=== PATIENT | male | born 1980 | race Caucasian/White ===

== ENCOUNTER 2019-10-21 18:35 | Inpatient (IN) ==
--- NOTE | 2019-10-21 19:25 | Emergency Department Note ---
General Adult HPI - General Chief complaint: Abdominal Pain Stated complaint: abdominal pain Time Seen by Provider: 10/21/19 19:08 Source: patient Mode of arrival: ambulatory Limitations: no limitations - History of Present Illness HPI Narrative: Reason for visit: Patient arrives complaining of lower back and left flank pain. States pain began yesterday. Reports some difficulties with urine, patient is not forthcoming with specifics. Patient was seen recently at this emergency department. He was seen by Without a specific diagnosis. Significant finding during that visit was elevated liver enzymes. During this visit my assessment patient's primary complaint was lower back pain is more significant to his left flank. He reports difficulty with urination. He is not specific on his symptoms. She is not forthcoming with information. A chest pain or palpations current shortness of breath. Reports fevers at home he is not specific on the temperature. He is afebrile during this visit according to triage note. Patient does add a multitude of symptoms that he has had such as shortness of breath cough and malaise. Reports that he is weaker than usual and has been lethargic. He does report a headache and generalized body aches. - Related Data Home Medications Medication Instructions Recorded Confirmed Albuterol Sulfate [Ventolin] 1 puff INH Q4HP PRN 03/12/16 10/22/19 Allergies Allergy/AdvReac Type Severity Reaction Status Date / Time codeine Allergy Severe Hives Verified 10/21/19 19:07 Tetanus Vaccines and Toxoid Allergy Unknown Unknown Verified 10/21/19 19:07 [Tetanus Vaccines & Toxoid] Review of Systems Constitutional: Reports: fever, chills. Denies: weakness ENT ED: Denies: throat pain Cardiovascular: Denies: chest pain, palpitations, dyspnea on exertion Respiratory: Reports: shortness of breath, cough, wheezes, phlegm Gastrointestinal: Reports: abdominal pain (Reorder reports abdominal pain as suprapubic his bladder area.). Denies: nausea, vomiting, diarrhea Genitourinary: Reports: dysuria Musculoskeletal: Reports: back pain Integumentary: Denies: rash, lesions Neurological: Reports: headache Endocrine: Reports: fatigue Hematological/Lymphatic: Denies: easy bleeding, easy bruising Past Medical History - Past Medical History Medical history: Reports: COPD, other (recurrent skin infections) Psychiatric history: Reports: anxiety Surgical history ED: Reports: orthopedic, other - Social History smoking status: Current every day smoker Alcohol use: Reports: None Drug use: Reports: methamphetamine. Denies: IVDU Physical Exam Limitations: no limitations General appearance: alert, anxious Head: atraumatic, normocephalic, normal inspection Eye: Present: normal appearance, PERRL. Absent: scleral icterus ENT: Present: normal exam, normal oropharynx, mucous membranes moist Neck: Present: normal inspection, full ROM. Absent: tenderness, lymphadenopathy Chest: Present: normal inspection, symmetric chest wall rise. Absent: tenderness Respiratory: Present: wheezes (I auscultated wheezes bilaterally.). Absent: normal lung sounds bilaterally, respiratory distress Cardiovascular: Present: regular rate, normal rhythm Abdominal: Present: tenderness (Reports tenderness at bladder area.), normal bowel sounds. Absent: guarding, Robb's sign, Rovsing's sign, tenderness at [place]Bur[place]'s Point Abdominal tenderness: Present: suprapubic. Absent: RUQ, RLQ, LUQ, LLQ Extremities: Present: normal inspection, full ROM Back: Present: normal inspection, CVA tenderness (L). Absent: CVA tenderness (R) Neurological: Present: alert, oriented X3, CN II-XII intact Psychiatric: Present: normal affect (Affect is reasonably normal appears somewhat subdued from place.), normal mood Skin: Present: warm, dry, intact, normal color. Absent: diaphoretic Course Course Narrative: During my assessment patient felt like he was becoming chilled and felt like his fever is coming back. I took his temperature and it was 100.4. Patient has multiple symptoms including stated shortness of breath and auscultated wheezes. Ports body aches. Due to his recent visit and lab results and current presentation I will draw blood check urine and get a chest x-ray. We will also obtain a flu swab. Due to patient's elevated liver enzymes I will give ibuprofen for fever symptoms instead of Tylenol. Patient refused x-ray. He states this is because he had an x-ray 2 days ago. I I discussed this with the patient. He told me his breathing has not changed since his last visit on the . Informed him that we would discuss this again after his labs come back. It with him this time he focus less on the multitude of symptoms he gave me on my second assessment. Focused more on his bladder discomfort and urinary problems. CMP results show sodium of 120 significant elevation of her enzymes. There is a call out to [facility] she requested to talk to the on-call GI specialist due to the elevation of liver enzymes. Plan is to admit this patient due to his low sodium. Talked to Dr. Romeo the GI specialist from [facility]. I discussed the elevated liver enzymes and low sodium. He recommended that I order a hepatitis panel and coagulation studies. We discussed the patients low-sodium. I discussed conversation I had with Dr. Batista from [facility] with Dr. Rojas. He ordered clotting studies. He told me that if the INR was within an acceptable level he would consider admitting this patient here at [facility]. I discussed this case with Dr. Pino, will be assuming care of this patient. Vital Signs Temperature 98.0 F 10/21/19 19:06 Pulse Rate 104 H 10/21/19 19:06 Respiratory Rate 16 10/21/19 19:06 Blood Pressure 122/59 10/21/19 19:06 Pulse Oximetry (%) 100 10/21/19 19:06 Temperature 100.9 F H 10/22/19 22:01 Pulse Rate 95 H 10/22/19 22:33 Respiratory Rate 18 10/22/19 17:47 Blood Pressure 117/70 10/22/19 22:30 Pulse Oximetry (%) 100 10/22/19 22:33 Medical Decision Making - Lab Data Result diagrams: 10/22/19 04:30 10/22/19 19:35 Lab Results 10/21/19 10/21/19 10/21/19 Range/Units 19:47 19:47 19:47 WBC 7.3 (4.5-11.0) K/mcL RBC 5.94 H (4.50-5.90) M/mcL Hgb 17.5 H (13.5-16.5) g/dL Hct 50.6 (41.0-55.0) % MCV 85.2 (80.0-100.0) fL MCH 29.5 (26.0-34.0) pg MCHC 34.6 (31.0-36.0) g/dL RDW 12.5 (11.5-14.5) % Plt Count 148 (140-440) K/mcL MPV 9.2 (7.4-10.4) fL Gran % 84.7 H (38.0-78.0) % Lymph % (Auto) 7.8 L (15.5-49.0) % [place] % (Auto) 4.6 (1.0-12.0) % Eos % (Auto) 1.2 (0.0-7.0) % Baso % (Auto) 1.7 (0.0-2.0) % Gran # 6.2 (1.8-8.0) K/mcL Lymph # (Auto) 0.6 L (1.5-4.8) K/mcL [place] # (Auto) 0.3 (0.1-0.9) K/mcL Eos # (Auto) 0.1 (0.0-0.7) K/mcL Baso # (Auto) 0.1 (0.0-0.3) K/mcL Total Counted Seg Neutrophils % (38-78) % Band Neutrophils % (0-10) % Lymphocytes % (15-49) % Monocytes % (Manual) (1-12) % Eosinophils % (Manual) (0-7) % Metamyelocytes % (0-0) % Differential Comment Platelet Estimate (NORMAL) RBC Morphology (NORMAL) PT (11.9-14.5) sec INR (0.9-1.1) VBG Lactic Acid (0.5-2.0) mmol/L Sodium 120 L (133-145) mmol/L Potassium 3.9 (3.3-5.1) mmol/L Chloride 82 L (96-108) mmol/L Carbon Dioxide 22 (22-30) mmol/L Anion Gap 16.0 (8-16) BUN 13 (6-20) mg/dl Creatinine 1.1 (0.7-1.2) mg/dl GFR Calculation 84 Glucose 97 (70-105) mg/dL Osmolality (280-300) mOSM/kg Uric Acid (2.5-8.0) mg/dL Calcium 8.1 L (8.6-10.4) mg/dl Total Bilirubin 1.6 H (0.0-1.0) mg/dL AST 3822 H (0-37) U/l ALT 2550 H (0-40) U/l Alkaline Phosphatase 190 H (39-117) U/L Ammonia (16-60) umol/L Lactate Dehydrogenase (94-250) U/L Total Creatine Kinase (24-195) IU/L Total Protein 6.8 (5.9-8.4) gm/dL Albumin 3.7 (3.2-5.2) gm/dL Globulin 3.1 (2.2-3.7) gm/dL Albumin/Globulin Ratio 1.2 (1.0-2.3) Prealbumin (20-40) mg/dl Lipase 15 (7-60) U/L Procalcitonin (<0.10) ng/mL TSH (0.27-5.01) uIU/ml Urine Color Urine Appearance Urine pH (5.0-9.0) Ur Specific [place] (1.000-1.035) Urine Protein (NEG) mg/dL Urine Glucose (UA) (NEG) mg/dL Urine Ketones (NEG) mg/dL Urine Occult Blood (<0.03) mg/dL Urine Nitrate (NEG) Urine Bilirubin (NEG) mg/dL Urine Urobilinogen (NEG) mg/dL Ur Leukocyte Esterase (NEG) /uL Urine RBC (0-1) /hpf Urine WBC (0-4) /hpf Ur Squamous Epith Cells (0-4) /hpf Amorphous Crystals (0) /hpf Urine Bacteria (0) /hpf Hyaline Casts (0-2) /lpf Urine Mucus (0) /hpf Ur Culture Indicated? Urine Osmolality (80-1000) mOsm/kg Ur Random Sodium mmol/L Salicylates mg/dL Urine Opiates Screen (NONDETECTED) Ur Opiates Confirm Ur Oxycodone Screen (NONDETECTED) Urine Methadone Screen (NONDETECTED) Ur Methadone Confirm Acetaminophen ug/mL Ur Barbiturates Screen (NONDETECTED) Ur Barbiturate Confirm Ur Phencyclidine Scrn (NONDETECTED) Urine PCP Confirm Ur Amphetamines Screen (NONDETECTED) U Amphetamines Confirm U Benzodiazepines Scrn (NONDETECTED) U Benzodiazepine Confm Urine Cocaine Screen (NONDETECTED) Urine Cocaine Confirm U Cannabinoids Confirm U Marijuana (THC) Screen (NONDETECTED) Ethyl Alcohol (<0.010) gm/dl Hepatitis A IgM Ab (NEGATIVE) Hep Bs Antigen (NEGATIVE) Hep B Core IgM Ab (NEGATIVE) Hepatitis C Antibody (NEGATIVE) HCV RNA Quant (PCR) HCV RNA PCR log IUs/ml 10/21/19 10/21/19 10/21/19 Range/Units 19:47 19:47 19:47 WBC (4.5-11.0) K/mcL RBC (4.50-5.90) M/mcL Hgb (13.5-16.5) g/dL Hct (41.0-55.0) % MCV (80.0-100.0) fL MCH (26.0-34.0) pg MCHC (31.0-36.0) g/dL RDW (11.5-14.5) % Plt Count (140-440) K/mcL MPV (7.4-10.4) fL Gran % (38.0-78.0) % Lymph % (Auto) (15.5-49.0) % [place] % (Auto) (1.0-12.0) % Eos % (Auto) (0.0-7.0) % Baso % (Auto) (0.0-2.0) % Gran # (1.8-8.0) K/mcL Lymph # (Auto) (1.5-4.8) K/mcL [place] # (Auto) (0.1-0.9) K/mcL Eos # (Auto) (0.0-0.7) K/mcL Baso # (Auto) (0.0-0.3) K/mcL Total Counted Seg Neutrophils % (38-78) % Band Neutrophils % (0-10) % Lymphocytes % (15-49) % Monocytes % (Manual) (1-12) % Eosinophils % (Manual) (0-7) % Metamyelocytes % (0-0) % Differential Comment Platelet Estimate (NORMAL) RBC Morphology (NORMAL) PT (11.9-14.5) sec INR (0.9-1.1) VBG Lactic Acid (0.5-2.0) mmol/L Sodium (133-145) mmol/L Potassium (3.3-5.1) mmol/L Chloride (96-108) mmol/L Carbon Dioxide (22-30) mmol/L Anion Gap (8-16) BUN (6-20) mg/dl Creatinine (0.7-1.2) mg/dl GFR Calculation Glucose (70-105) mg/dL Osmolality (280-300) mOSM/kg Uric Acid (2.5-8.0) mg/dL Calcium (8.6-10.4) mg/dl Total Bilirubin (0.0-1.0) mg/dL AST (0-37) U/l ALT (0-40) U/l Alkaline Phosphatase (39-117) U/L Ammonia (16-60) umol/L Lactate Dehydrogenase (94-250) U/L Total Creatine Kinase (24-195) IU/L Total Protein (5.9-8.4) gm/dL Albumin (3.2-5.2) gm/dL Globulin (2.2-3.7) gm/dL Albumin/Globulin Ratio (1.0-2.3) Prealbumin 14.6 L (20-40) mg/dl Lipase (7-60) U/L Procalcitonin (<0.10) ng/mL TSH (0.27-5.01) uIU/ml Urine Color Urine Appearance Urine pH (5.0-9.0) Ur Specific [place] (1.000-1.035) Urine Protein (NEG) mg/dL Urine Glucose (UA) (NEG) mg/dL Urine Ketones (NEG) mg/dL Urine Occult Blood (<0.03) mg/dL Urine Nitrate (NEG) Urine Bilirubin (NEG) mg/dL Urine Urobilinogen (NEG) mg/dL Ur Leukocyte Esterase (NEG) /uL Urine RBC (0-1) /hpf Urine WBC (0-4) /hpf Ur Squamous Epith Cells (0-4) /hpf Amorphous Crystals (0) /hpf Urine Bacteria (0) /hpf Hyaline Casts (0-2) /lpf Urine Mucus (0) /hpf Ur Culture Indicated? Urine Osmolality (80-1000) mOsm/kg Ur Random Sodium mmol/L Salicylates mg/dL Urine Opiates Screen (NONDETECTED) Ur Opiates Confirm Ur Oxycodone Screen (NONDETECTED) Urine Methadone Screen (NONDETECTED) Ur Methadone Confirm Acetaminophen < 5.0 ug/mL Ur Barbiturates Screen (NONDETECTED) Ur Barbiturate Confirm Ur Phencyclidine Scrn (NONDETECTED) Urine PCP Confirm Ur Amphetamines Screen (NONDETECTED) U Amphetamines Confirm U Benzodiazepines Scrn (NONDETECTED) U Benzodiazepine Confm Urine Cocaine Screen (NONDETECTED) Urine Cocaine Confirm U Cannabinoids Confirm U Marijuana (THC) Screen (NONDETECTED) Ethyl Alcohol < 0.010 (<0.010) gm/dl Hepatitis A IgM Ab (NEGATIVE) Hep Bs Antigen (NEGATIVE) Hep B Core IgM Ab (NEGATIVE) Hepatitis C Antibody (NEGATIVE) HCV RNA Quant (PCR) HCV RNA PCR log IUs/ml 10/21/19 10/21/19 10/21/19 Range/Units 19:47 19:47 20:19 WBC (4.5-11.0) K/mcL RBC (4.50-5.90) M/mcL Hgb (13.5-16.5) g/dL Hct (41.0-55.0) % MCV (80.0-100.0) fL MCH (26.0-34.0) pg MCHC (31.0-36.0) g/dL RDW (11.5-14.5) % Plt Count (140-440) K/mcL MPV (7.4-10.4) fL Gran % (38.0-78.0) % Lymph % (Auto) (15.5-49.0) % [place] % (Auto) (1.0-12.0) % Eos % (Auto) (0.0-7.0) % Baso % (Auto) (0.0-2.0) % Gran # (1.8-8.0) K/mcL Lymph # (Auto) (1.5-4.8) K/mcL [place] # (Auto) (0.1-0.9) K/mcL Eos # (Auto) (0.0-0.7) K/mcL Baso # (Auto) (0.0-0.3) K/mcL Total Counted 100 Seg Neutrophils % 47 (38-78) % Band Neutrophils % 33 H (0-10) % Lymphocytes % 13 L (15-49) % Monocytes % (Manual) 4 (1-12) % Eosinophils % (Manual) 1 (0-7) % Metamyelocytes % 2 H (0-0) % Differential Comment Platelet Estimate Normal (NORMAL) RBC Morphology Normal (NORMAL) PT 15.8 H (11.9-14.5) sec INR 1.3 H (0.9-1.1) VBG Lactic Acid (0.5-2.0) mmol/L Sodium (133-145) mmol/L Potassium (3.3-5.1) mmol/L Chloride (96-108) mmol/L Carbon Dioxide (22-30) mmol/L Anion Gap (8-16) BUN (6-20) mg/dl Creatinine (0.7-1.2) mg/dl GFR Calculation Glucose (70-105) mg/dL Osmolality (280-300) mOSM/kg Uric Acid (2.5-8.0) mg/dL Calcium (8.6-10.4) mg/dl Total Bilirubin (0.0-1.0) mg/dL AST (0-37) U/l ALT (0-40) U/l Alkaline Phosphatase (39-117) U/L Ammonia (16-60) umol/L Lactate Dehydrogenase (94-250) U/L Total Creatine Kinase (24-195) IU/L Total Protein (5.9-8.4) gm/dL Albumin (3.2-5.2) gm/dL Globulin (2.2-3.7) gm/dL Albumin/Globulin Ratio (1.0-2.3) Prealbumin (20-40) mg/dl Lipase (7-60) U/L Procalcitonin (<0.10) ng/mL TSH (0.27-5.01) uIU/ml Urine Color Yellow Urine Appearance Hazy Urine pH 6.0 (5.0-9.0) Ur Specific [place] 1.017 (1.000-1.035) Urine Protein 100 A (NEG) mg/dL Urine Glucose (UA) Negative (NEG) mg/dL Urine Ketones 5/tr A (NEG) mg/dL Urine Occult Blood 0.2 A (<0.03) mg/dL Urine Nitrate Neg (NEG) Urine Bilirubin Neg (NEG) mg/dL Urine Urobilinogen 2.0 A (NEG) mg/dL Ur Leukocyte Esterase Neg (NEG) /uL Urine RBC 1 (0-1) /hpf Urine WBC 2 (0-4) /hpf Ur Squamous Epith Cells 0 (0-4) /hpf Amorphous Crystals Few A (0) /hpf Urine Bacteria 0 (0) /hpf Hyaline Casts 5 H (0-2) /lpf Urine Mucus Few (0) /hpf Ur Culture Indicated? No Urine Osmolality (80-1000) mOsm/kg Ur Random Sodium mmol/L Salicylates mg/dL Urine Opiates Screen (NONDETECTED) Ur Opiates Confirm Ur Oxycodone Screen (NONDETECTED) Urine Methadone Screen (NONDETECTED) Ur Methadone Confirm Acetaminophen ug/mL Ur Barbiturates Screen (NONDETECTED) Ur Barbiturate Confirm Ur Phencyclidine Scrn (NONDETECTED) Urine PCP Confirm Ur Amphetamines Screen (NONDETECTED) U Amphetamines Confirm U Benzodiazepines Scrn (NONDETECTED) U Benzodiazepine Confm Urine Cocaine Screen (NONDETECTED) Urine Cocaine Confirm U Cannabinoids Confirm U Marijuana (THC) Screen (NONDETECTED) Ethyl Alcohol (<0.010) gm/dl Hepatitis A IgM Ab (NEGATIVE) Hep Bs Antigen (NEGATIVE) Hep B Core IgM Ab (NEGATIVE) Hepatitis C Antibody (NEGATIVE) HCV RNA Quant (PCR) HCV RNA PCR log IUs/ml 10/21/19 10/21/19 10/21/19 Range/Units 20:19 20:21 22:40 WBC (4.5-11.0) K/mcL RBC (4.50-5.90) M/mcL Hgb (13.5-16.5) g/dL Hct (41.0-55.0) % MCV (80.0-100.0) fL MCH (26.0-34.0) pg MCHC (31.0-36.0) g/dL RDW (11.5-14.5) % Plt Count (140-440) K/mcL MPV (7.4-10.4) fL Gran % (38.0-78.0) % Lymph % (Auto) (15.5-49.0) % [place] % (Auto) (1.0-12.0) % Eos % (Auto) (0.0-7.0) % Baso % (Auto) (0.0-2.0) % Gran # (1.8-8.0) K/mcL Lymph # (Auto) (1.5-4.8) K/mcL [place] # (Auto) (0.1-0.9) K/mcL Eos # (Auto) (0.0-0.7) K/mcL Baso # (Auto) (0.0-0.3) K/mcL Total Counted Seg Neutrophils % (38-78) % Band Neutrophils % (0-10) % Lymphocytes % (15-49) % Monocytes % (Manual) (1-12) % Eosinophils % (Manual) (0-7) % Metamyelocytes % (0-0) % Differential Comment Platelet Estimate (NORMAL) RBC Morphology (NORMAL) PT (11.9-14.5) sec INR (0.9-1.1) VBG Lactic Acid (0.5-2.0) mmol/L Sodium (133-145) mmol/L Potassium (3.3-5.1) mmol/L Chloride (96-108) mmol/L Carbon Dioxide (22-30) mmol/L Anion Gap (8-16) BUN (6-20) mg/dl Creatinine (0.7-1.2) mg/dl GFR Calculation Glucose (70-105) mg/dL Osmolality (280-300) mOSM/kg Uric Acid (2.5-8.0) mg/dL Calcium (8.6-10.4) mg/dl Total Bilirubin (0.0-1.0) mg/dL AST (0-37) U/l ALT (0-40) U/l Alkaline Phosphatase (39-117) U/L Ammonia (16-60) umol/L Lactate Dehydrogenase (94-250) U/L Total Creatine Kinase (24-195) IU/L Total Protein (5.9-8.4) gm/dL Albumin (3.2-5.2) gm/dL Globulin (2.2-3.7) gm/dL Albumin/Globulin Ratio (1.0-2.3) Prealbumin (20-40) mg/dl Lipase (7-60) U/L Procalcitonin (<0.10) ng/mL TSH (0.27-5.01) uIU/ml Urine Color Urine Appearance Urine pH (5.0-9.0) Ur Specific [place] (1.000-1.035) Urine Protein (NEG) mg/dL Urine Glucose (UA) (NEG) mg/dL Urine Ketones (NEG) mg/dL Urine Occult Blood (<0.03) mg/dL Urine Nitrate (NEG) Urine Bilirubin (NEG) mg/dL Urine Urobilinogen (NEG) mg/dL Ur Leukocyte Esterase (NEG) /uL Urine RBC (0-1) /hpf Urine WBC (0-4) /hpf Ur Squamous Epith Cells (0-4) /hpf Amorphous Crystals (0) /hpf Urine Bacteria (0) /hpf Hyaline Casts (0-2) /lpf Urine Mucus (0) /hpf Ur Culture Indicated? Urine Osmolality 555 (80-1000) mOsm/kg Ur Random Sodium 24 mmol/L Salicylates mg/dL Urine Opiates Screen None detected (NONDETECTED) Ur Opiates Confirm Not Reportable Ur Oxycodone Screen None detected (NONDETECTED) Urine Methadone Screen None detected (NONDETECTED) Ur Methadone Confirm Not Reportable Acetaminophen ug/mL Ur Barbiturates Screen None detected (NONDETECTED) Ur Barbiturate Confirm Not Reportable Ur Phencyclidine Scrn None detected (NONDETECTED) Urine PCP Confirm Not Reportable Ur Amphetamines Screen Suspect positive A (NONDETECTED) U Amphetamines Confirm Not Reportable U Benzodiazepines Scrn None detected (NONDETECTED) U Benzodiazepine Confm Not Reportable Urine Cocaine Screen None detected (NONDETECTED) Urine Cocaine Confirm Not Reportable U Cannabinoids Confirm Not Reportable U Marijuana (THC) Screen Suspect positive A (NONDETECTED) Ethyl Alcohol (<0.010) gm/dl Hepatitis A IgM Ab Reactive (NEGATIVE) Hep Bs Antigen Negative (NEGATIVE) Hep B Core IgM Ab Non reactive (NEGATIVE) Hepatitis C Antibody Non reactive (NEGATIVE) HCV RNA Quant (PCR) TNP HCV RNA PCR log IUs/ml TNP 10/21/19 10/21/19 10/21/19 Range/Units 22:40 22:45 23:00 WBC (4.5-11.0) K/mcL RBC (4.50-5.90) M/mcL Hgb (13.5-16.5) g/dL Hct (41.0-55.0) % MCV (80.0-100.0) fL MCH (26.0-34.0) pg MCHC (31.0-36.0) g/dL RDW (11.5-14.5) % Plt Count (140-440) K/mcL MPV (7.4-10.4) fL Gran % (38.0-78.0) % Lymph % (Auto) (15.5-49.0) % [place] % (Auto) (1.0-12.0) % Eos % (Auto) (0.0-7.0) % Baso % (Auto) (0.0-2.0) % Gran # (1.8-8.0) K/mcL Lymph # (Auto) (1.5-4.8) K/mcL [place] # (Auto) (0.1-0.9) K/mcL Eos # (Auto) (0.0-0.7) K/mcL Baso # (Auto) (0.0-0.3) K/mcL Total Counted Seg Neutrophils % (38-78) % Band Neutrophils % (0-10) % Lymphocytes % (15-49) % Monocytes % (Manual) (1-12) % Eosinophils % (Manual) (0-7) % Metamyelocytes % (0-0) % Differential Comment Platelet Estimate (NORMAL) RBC Morphology (NORMAL) PT (11.9-14.5) sec INR (0.9-1.1) VBG Lactic Acid 1.3 (0.5-2.0) mmol/L Sodium (133-145) mmol/L Potassium (3.3-5.1) mmol/L Chloride (96-108) mmol/L Carbon Dioxide (22-30) mmol/L Anion Gap (8-16) BUN (6-20) mg/dl Creatinine (0.7-1.2) mg/dl GFR Calculation Glucose (70-105) mg/dL Osmolality 261 L (280-300) mOSM/kg Uric Acid 5.0 (2.5-8.0) mg/dL Calcium (8.6-10.4) mg/dl Total Bilirubin (0.0-1.0) mg/dL AST (0-37) U/l ALT (0-40) U/l Alkaline Phosphatase (39-117) U/L Ammonia (16-60) umol/L Lactate Dehydrogenase (94-250) U/L Total Creatine Kinase (24-195) IU/L Total Protein (5.9-8.4) gm/dL Albumin (3.2-5.2) gm/dL Globulin (2.2-3.7) gm/dL Albumin/Globulin Ratio (1.0-2.3) Prealbumin (20-40) mg/dl Lipase (7-60) U/L Procalcitonin (<0.10) ng/mL TSH (0.27-5.01) uIU/ml Urine Color Urine Appearance Urine pH (5.0-9.0) Ur Specific [place] (1.000-1.035) Urine Protein (NEG) mg/dL Urine Glucose (UA) (NEG) mg/dL Urine Ketones (NEG) mg/dL Urine Occult Blood (<0.03) mg/dL Urine Nitrate (NEG) Urine Bilirubin (NEG) mg/dL Urine Urobilinogen (NEG) mg/dL Ur Leukocyte Esterase (NEG) /uL Urine RBC (0-1) /hpf Urine WBC (0-4) /hpf Ur Squamous Epith Cells (0-4) /hpf Amorphous Crystals (0) /hpf Urine Bacteria (0) /hpf Hyaline Casts (0-2) /lpf Urine Mucus (0) /hpf Ur Culture Indicated? Urine Osmolality (80-1000) mOsm/kg Ur Random Sodium mmol/L Salicylates < 0.3 mg/dL Urine Opiates Screen (NONDETECTED) Ur Opiates Confirm Ur Oxycodone Screen (NONDETECTED) Urine Methadone Screen (NONDETECTED) Ur Methadone Confirm Acetaminophen ug/mL Ur Barbiturates Screen (NONDETECTED) Ur Barbiturate Confirm Ur Phencyclidine Scrn (NONDETECTED) Urine PCP Confirm Ur Amphetamines Screen (NONDETECTED) U Amphetamines Confirm U Benzodiazepines Scrn (NONDETECTED) U Benzodiazepine Confm Urine Cocaine Screen (NONDETECTED) Urine Cocaine Confirm U Cannabinoids Confirm U Marijuana (THC) Screen (NONDETECTED) Ethyl Alcohol (<0.010) gm/dl Hepatitis A IgM Ab (NEGATIVE) Hep Bs Antigen (NEGATIVE) Hep B Core IgM Ab (NEGATIVE) Hepatitis C Antibody (NEGATIVE) HCV RNA Quant (PCR) HCV RNA PCR log IUs/ml 10/21/19 10/21/19 10/21/19 Range/Units 23:00 23:00 23:00 WBC (4.5-11.0) K/mcL RBC (4.50-5.90) M/mcL Hgb (13.5-16.5) g/dL Hct (41.0-55.0) % MCV (80.0-100.0) fL MCH (26.0-34.0) pg MCHC (31.0-36.0) g/dL RDW (11.5-14.5) % Plt Count (140-440) K/mcL MPV (7.4-10.4) fL Gran % (38.0-78.0) % Lymph % (Auto) (15.5-49.0) % [place] % (Auto) (1.0-12.0) % Eos % (Auto) (0.0-7.0) % Baso % (Auto) (0.0-2.0) % Gran # (1.8-8.0) K/mcL Lymph # (Auto) (1.5-4.8) K/mcL [place] # (Auto) (0.1-0.9) K/mcL Eos # (Auto) (0.0-0.7) K/mcL Baso # (Auto) (0.0-0.3) K/mcL Total Counted Seg Neutrophils % (38-78) % Band Neutrophils % (0-10) % Lymphocytes % (15-49) % Monocytes % (Manual) (1-12) % Eosinophils % (Manual) (0-7) % Metamyelocytes % (0-0) % Differential Comment Platelet Estimate (NORMAL) RBC Morphology (NORMAL) PT (11.9-14.5) sec INR (0.9-1.1) VBG Lactic Acid (0.5-2.0) mmol/L Sodium (133-145) mmol/L Potassium (3.3-5.1) mmol/L Chloride (96-108) mmol/L Carbon Dioxide (22-30) mmol/L Anion Gap (8-16) BUN (6-20) mg/dl Creatinine (0.7-1.2) mg/dl GFR Calculation Glucose (70-105) mg/dL Osmolality (280-300) mOSM/kg Uric Acid (2.5-8.0) mg/dL Calcium (8.6-10.4) mg/dl Total Bilirubin (0.0-1.0) mg/dL AST (0-37) U/l ALT (0-40) U/l Alkaline Phosphatase (39-117) U/L Ammonia 38 (16-60) umol/L Lactate Dehydrogenase (94-250) U/L Total Creatine Kinase (24-195) IU/L Total Protein (5.9-8.4) gm/dL Albumin (3.2-5.2) gm/dL Globulin (2.2-3.7) gm/dL Albumin/Globulin Ratio (1.0-2.3) Prealbumin (20-40) mg/dl Lipase (7-60) U/L Procalcitonin 1.14 (<0.10) ng/mL TSH 2.34 (0.27-5.01) uIU/ml Urine Color Urine Appearance Urine pH (5.0-9.0) Ur Specific [place] (1.000-1.035) Urine Protein (NEG) mg/dL Urine Glucose (UA) (NEG) mg/dL Urine Ketones (NEG) mg/dL Urine Occult Blood (<0.03) mg/dL Urine Nitrate (NEG) Urine Bilirubin (NEG) mg/dL Urine Urobilinogen (NEG) mg/dL Ur Leukocyte Esterase (NEG) /uL Urine RBC (0-1) /hpf Urine WBC (0-4) /hpf Ur Squamous Epith Cells (0-4) /hpf Amorphous Crystals (0) /hpf Urine Bacteria (0) /hpf Hyaline Casts (0-2) /lpf Urine Mucus (0) /hpf Ur Culture Indicated? Urine Osmolality (80-1000) mOsm/kg Ur Random Sodium mmol/L Salicylates mg/dL Urine Opiates Screen (NONDETECTED) Ur Opiates Confirm Ur Oxycodone Screen (NONDETECTED) Urine Methadone Screen (NONDETECTED) Ur Methadone Confirm Acetaminophen ug/mL Ur Barbiturates Screen (NONDETECTED) Ur Barbiturate Confirm Ur Phencyclidine Scrn (NONDETECTED) Urine PCP Confirm Ur Amphetamines Screen (NONDETECTED) U Amphetamines Confirm U Benzodiazepines Scrn (NONDETECTED) U Benzodiazepine Confm Urine Cocaine Screen (NONDETECTED) Urine Cocaine Confirm U Cannabinoids Confirm U Marijuana (THC) Screen (NONDETECTED) Ethyl Alcohol (<0.010) gm/dl Hepatitis A IgM Ab (NEGATIVE) Hep Bs Antigen (NEGATIVE) Hep B Core IgM Ab (NEGATIVE) Hepatitis C Antibody (NEGATIVE) HCV RNA Quant (PCR) HCV RNA PCR log IUs/ml 10/22/19 10/22/19 Range/Units 00:45 00:51 WBC (4.5-11.0) K/mcL RBC (4.50-5.90) M/mcL Hgb (13.5-16.5) g/dL Hct (41.0-55.0) % MCV (80.0-100.0) fL MCH (26.0-34.0) pg MCHC (31.0-36.0) g/dL RDW (11.5-14.5) % Plt Count (140-440) K/mcL MPV (7.4-10.4) fL Gran % (38.0-78.0) % Lymph % (Auto) (15.5-49.0) % [place] % (Auto) (1.0-12.0) % Eos % (Auto) (0.0-7.0) % Baso % (Auto) (0.0-2.0) % Gran # (1.8-8.0) K/mcL Lymph # (Auto) (1.5-4.8) K/mcL [place] # (Auto) (0.1-0.9) K/mcL Eos # (Auto) (0.0-0.7) K/mcL Baso # (Auto) (0.0-0.3) K/mcL Total Counted Seg Neutrophils % (38-78) % Band Neutrophils % (0-10) % Lymphocytes % (15-49) % Monocytes % (Manual) (1-12) % Eosinophils % (Manual) (0-7) % Metamyelocytes % (0-0) % Differential Comment Platelet Estimate (NORMAL) RBC Morphology (NORMAL) PT (11.9-14.5) sec INR (0.9-1.1) VBG Lactic Acid (0.5-2.0) mmol/L Sodium (133-145) mmol/L Potassium (3.3-5.1) mmol/L Chloride (96-108) mmol/L Carbon Dioxide (22-30) mmol/L Anion Gap (8-16) BUN (6-20) mg/dl Creatinine (0.7-1.2) mg/dl GFR Calculation Glucose (70-105) mg/dL Osmolality (280-300) mOSM/kg Uric Acid (2.5-8.0) mg/dL Calcium (8.6-10.4) mg/dl Total Bilirubin (0.0-1.0) mg/dL AST (0-37) U/l ALT (0-40) U/l Alkaline Phosphatase (39-117) U/L Ammonia (16-60) umol/L Lactate Dehydrogenase 2353 H (94-250) U/L Total Creatine Kinase 578 H (24-195) IU/L Total Protein (5.9-8.4) gm/dL Albumin (3.2-5.2) gm/dL Globulin (2.2-3.7) gm/dL Albumin/Globulin Ratio (1.0-2.3) Prealbumin (20-40) mg/dl Lipase (7-60) U/L Procalcitonin (<0.10) ng/mL TSH (0.27-5.01) uIU/ml Urine Color Urine Appearance Urine pH (5.0-9.0) Ur Specific [place] (1.000-1.035) Urine Protein (NEG) mg/dL Urine Glucose (UA) (NEG) mg/dL Urine Ketones (NEG) mg/dL Urine Occult Blood (<0.03) mg/dL Urine Nitrate (NEG) Urine Bilirubin (NEG) mg/dL Urine Urobilinogen (NEG) mg/dL Ur Leukocyte Esterase (NEG) /uL Urine RBC (0-1) /hpf Urine WBC (0-4) /hpf Ur Squamous Epith Cells (0-4) /hpf Amorphous Crystals (0) /hpf Urine Bacteria (0) /hpf Hyaline Casts (0-2) /lpf Urine Mucus (0) /hpf Ur Culture Indicated? Urine Osmolality (80-1000) mOsm/kg Ur Random Sodium mmol/L Salicylates mg/dL Urine Opiates Screen (NONDETECTED) Ur Opiates Confirm Ur Oxycodone Screen (NONDETECTED) Urine Methadone Screen (NONDETECTED) Ur Methadone Confirm Acetaminophen ug/mL Ur Barbiturates Screen (NONDETECTED) Ur Barbiturate Confirm Ur Phencyclidine Scrn (NONDETECTED) Urine PCP Confirm Ur Amphetamines Screen (NONDETECTED) U Amphetamines Confirm U Benzodiazepines Scrn (NONDETECTED) U Benzodiazepine Confm Urine Cocaine Screen (NONDETECTED) Urine Cocaine Confirm U Cannabinoids Confirm U Marijuana (THC) Screen (NONDETECTED) Ethyl Alcohol (<0.010) gm/dl Hepatitis A IgM Ab (NEGATIVE) Hep Bs Antigen (NEGATIVE) Hep B Core IgM Ab (NEGATIVE) Hepatitis C Antibody (NEGATIVE) HCV RNA Quant (PCR) HCV RNA PCR log IUs/ml Disposition Pt seen by MANAGER [facility] only: No Clinical Impression: Hyponatremia, Sepsis, LFTs abnormal Disposition: Xfer As Inpt ([facility]) Condition: Undetermined
[2019-10-21] MEDS ORDERED: LACTATED RINGERS 1,000 ML IV ONE (19:32)
[2019-10-21] MEDS ORDERED: IBUPROFEN 200 MG TABLET PO ONE (19:34)
[2019-10-21 20:37] LABS: Basophils # (Auto) 0.1 K/mcL (0.0-0.3); Basophils % (Auto) 1.7 % (0.0-2.0); Eosinophils # (Auto) 0.1 K/mcL (0.0-0.7); Eosinophils % (Auto) 1.2 % (0.0-7.0); Granulocytes % (Auto) 84.7 % (38.0-78.0); Hematocrit 50.6 % (41.0-55.0); Hemoglobin 17.5 g/dL (13.5-16.5); Lymphocytes # (Auto) 0.6 K/mcL (1.5-4.8); Lymphocytes % (Auto) 7.8 % (15.5-49.0); Mean Cell Volume 85.2 fL (80.0-100.0); Mean Corpuscular HGB Conc 34.6 g/dL (31.0-36.0); Mean Platelet Volume 9.2 fL (7.4-10.4); Monocytes # (Auto) 0.3 K/mcL (0.1-0.9); Monocytes % (Auto) 4.6 % (1.0-12.0); Platelet Count 148 K/mcL (140-440); RBC 5.94 M/mcL (4.50-5.90); Red Cell Distribution Width 12.5 % (11.5-14.5); WBC 7.3 K/mcL (4.5-11.0)
[2019-10-21 20:50] LABS: Albumin 3.7 gm/dL (3.2-5.2); Albumin/Globulin Ratio 1.2 (1.0-2.3); Alkaline Phosphatase 190 U/L (39-117); Bilirubin,Total 1.6 mg/dL (0.0-1.0); Blood Urea Nitrogen 13 mg/dl (6-20); Calcium 8.1 mg/dl (8.6-10.4); Carbon Dioxide 22 mmol/L (22-30); Globulin 3.1 gm/dL (2.2-3.7); Glomerular Filtration Rate 84; Glucose 97 mg/dL (70-105)
[2019-10-21 21:10] LABS: Appearance,Urine HAZY; Bacteria,Urine 0 /hpf (0); Bilirubin,Urine NEG (NEG); Color,Urine YELLOW; Culture Indicated,Urine NO; Glucose,Urine (UA) NEGATIVE (NEG); Ketones,Urine 5/TR mg/dL (NEG); Leukocyte Esterase,Urine NEG /uL (NEG); Mucus,Urine FEW /hpf (0); Nitrate,Urine NEG (NEG); Protein,Urine 100 mg/dL (NEG); Specific Gravity,Urine 1.017 (1.000-1.035); Urine Amorphous Crystals FEW /hpf (0); Urine Blood 0.2 mg/dL (<0.03); Urine Hyaline Cast 5 /lpf (0-2); Urine RBC 1 /hpf (0-1); Urine Squamous Epithelial Cell 0 /hpf (0-4); Urine WBC 2 /hpf (0-4)
[2019-10-21 21:18] LABS: ALT/SGPT 2550 U/l (0-40); AST/SGOT 3822 U/l (0-37)
[2019-10-21 21:35] LABS: Chloride 82 mmol/L (96-108)
[2019-10-21 23:01] LABS: Amphetamine Screen,Urine SUSPECT POSITIVE (NONDETECTED); Barbiturate Screen,Urine NONE DETECTED (NONDETECTED); Benzodiazepines Screen,Urine NONE DETECTED (NONDETECTED); Cannabinoid Screen,Urine SUSPECT POSITIVE (NONDETECTED); Cocaine Screen,Urine NONE DETECTED (NONDETECTED); Opiate Screen,Urine NONE DETECTED (NONDETECTED); Oxycodone, Urine Screen NONE DETECTED (NONDETECTED); Phencyclidine Screen,Urine NONE DETECTED (NONDETECTED)
[2019-10-21 23:18] LABS: Osmolality,Urine 555 mOsm/kg (80-1000)
[2019-10-21 23:42] LABS: INR 1.3 (0.9-1.1); Prothrombin Time 15.8 sec (11.9-14.5)
[2019-10-21 23:51] LABS: Alcohol, Blood < 10.0 mg/dL (<10); Alcohol,Blood < 0.010 gm/dl (<0.010)
[2019-10-21 23:56] LABS: Band Neutrophils % 33 % (0-10); Eosinophils % (Manual) 1 % (0-7); Lymphocytes % 13 % (15-49); Metamyelocytes % 2 % (0-0); Monocytes % (Manual) 4 % (1-12); Platelet Estimate NORMAL (NORMAL); RBC Morphology NORMAL (NORMAL); Segmented Neutrophils % 47 % (38-78)
[2019-10-22] LABS: Sodium, Urine Random 24 mmol/L
--- NOTE | 2019-10-22 00:46 | Internal Med History&Physical ---
Medical - H&P: HPI Patient information: Note initiated : 10/22/19 at 12:46 am Service Date, if different from initiated Date: [] Patient: Rosendo Rivera a 39 y/o M admitted on for abdominal pain. Chief Complaint: [] History of present illness: Mr. Rivera is a 39 year old M Into the ED complaining of lower abdominal pain that started yesterday. Patient was first seen at [facility] on the for sinus symptoms. He then went to [facility] on the and left there because he felt like he was being taken care of. Arrived in the ED at [facility] on the complaining of abdominal pain lower quadrants. He complained of fever and some diarrhea. No blood in his stools. He complained of some coughing as well and shortness of breath. Chest x-ray and CT abdomen pelvis were done which showed normal chest and in the abdomen pelvis only mild fatty liver as well as diverticulosis but no diverticulitis. Patient received IV fluids narcotics and felt better. Rectal examination was unremarkable. Found to have low sodium and mildly elevated liver enzymes and had a normal alcohol level. Hepatitis panel was negative. After treatment the ER felt better and was discharged. Today he presents back with same pain and reports some difficulty with urine. Per ER notes patient was not forthcoming with much history. Complains of headache and generalized body aches and malaise. I further questioning admits to generalized abdominal pain sharp and crampy. He says he had continued diarrhea but no reported diarrhea in the ER here. He reports cough with some green sputum but no shortness of breath. He says this is all started on the . His INR was this and reason Tylenol level was okay. Patient denies recent Tylenol use. Admits to methamphetamines but states he smokes and does not use IV drugs. Review of Systems: Pertinent positives as above. Denies vomiting/chest pain/dyspnea. Remaining 10 point review of system reviewed negative Medical - H&P: PMH Medical history: Medical History Anxiety/depression Tobacco abuse Substance abuse COPD Diverticulosis Mild fatty liver noted on last imaging Past surgical history: Tonsillectomy Hand surgery Family history: States his mother and father both healthy Social history: Patient smokes 1/2 pack per day Denies alcohol use Patient uses methamphetamine and marijuana Lives with friends Medical - H&P: Meds Home Medications Medication Instructions Recorded Confirmed Type Albuterol Sulfate [Ventolin] 1 puff INH Q4HP PRN 03/12/16 03/12/16 History Sulfamethoxazole/Trimethoprim 1 tab PO BID #20 tablet 03/12/16 Rx [Bactrim Ds] Sulfamethoxazole/Trimethoprim 1 tab PO BID #20 tablet 03/20/16 Rx [Bactrim Ds] Allergies Allergy/AdvReac Type Severity Reaction Status Date / Time codeine Allergy Severe Hives Verified 10/21/19 19:07 Tetanus Vaccines and Toxoid Allergy Unknown Unknown Verified 10/21/19 19:07 [Tetanus Vaccines & Toxoid] Medical - H&P: Exam - Constitutional Vitals: Temp Pulse Resp BP Pulse Ox 101.6 F H 85 17 118/78 100 10/21/19 22:05 10/22/19 00:16 10/22/19 00:16 10/22/19 00:16 10/22/19 00:16 Exam: General: Awake, mild Distress from discomfort Eyes/N/T: EOMI, PERRL, DMM Head/Neck: neck supple, normocephalic atraumatic CV: Mildly tacky but regular, No murmurs, Pulm: Clear b/l, no wheezing/rhonchi/rales Abd: soft, TTP throughout, +BS x4 Ext: no clubbing/cyanosis/edema Neuro: awake, Oriented x4 but lethargic, no focal deficits, moves all extremities, CN 2-12 grossly intact, symmetrical strength b/l upper/lower, sensations intact b/l upper/lower Skin: warm/dry Medical - H&P: Reslt - Labs CBC & Chem 7: 10/21/19 19:47 10/21/19 19:47 Labs: Short CBC 10/21/19 Range/Units 19:47 WBC 7.3 (4.5-11.0) K/mcL Hgb 17.5 H (13.5-16.5) g/dL Hct 50.6 (41.0-55.0) % Plt Count 148 (140-440) K/mcL BMP 10/21/19 19:47 Sodium 120 L Potassium 3.9 Chloride 82 L Carbon Dioxide 22 BUN 13 Creatinine 1.1 Glucose 97 Calcium 8.1 L Liver Function 10/21/19 Range/Units 19:47 Total Bilirubin 1.6 H (0.0-1.0) mg/dL AST 3822 H (0-37) U/l ALT 2550 H (0-40) U/l Alkaline Phosphatase 190 H (39-117) U/L Albumin 3.7 (3.2-5.2) gm/dL Urine 10/21/19 Range/Units 20:19 Urine Color Yellow Urine Appearance Hazy Urine pH 6.0 (5.0-9.0) Ur Specific [place] 1.017 (1.000-1.035) Urine Protein 100 A (NEG) mg/dL Urine Glucose (UA) Negative (NEG) mg/dL Medical - H&P: A/P - Narrative A/P Narrative: A: *Severe elevation in liver enzyme, including mildly elevated bili/ALP: ?etiology unknown, possible drug (including meth) vs viral vs -INR <1.5, ammonia wnl, hepatitis panel negative, APAP/ASA wnl, BAL neg -UDS with Meth/MJ -lethargic but oriented x4 and answering questions appropriately -CT a/p with mild fatty liver and diverticulosis, no other acute process -Case d/w with Dr. Romeo ([facility]) from ED who had no other recommen dations other than checking hepatitis/tylenol and felt no need for transfer *Generalized Abd pain / Diarrhea: *Hyponatremia, hypotonic: -TSH wnl *Substance abuse including methamphetamines *Sepsis: unknown source but given drug use, endocarditis high in differential -PCT elevated, febrile/bandemia, tachy, lactate ok *Anxiety: *COPD: P: -NS IVFs, -serial sodium -Vanc/Zosyn, BC pending -consider further imaging including hepatic vein doppler -follow INR/hepatic panel, viral studies -stool studies -avoid Tylenol/NSAIDS -ppx: lovenox
[2019-10-22] MEDS ORDERED: VANCOMYCIN PER PHARMACY IV ONE ×2 (00:47→01:48)
[2019-10-22] MEDS ORDERED: VANCOMYCIN 1,500 MG in 0.9 % SODIUM CHLORIDE 500 ML IV ONE ×2 (00:47→01:48)
[2019-10-22 00:50] LABS: Hepatitis B Surface Antigen NEGATIVE (NEGATIVE); Hepatitis C Virus Antibody NON REACTIVE (NEGATIVE)
[2019-10-22] MEDS ORDERED: PIPERACILLIN SODIUM/TAZOBACTAM 3.375 GM in DEXTROSE 5% IN WATER 50 ML IV SCH (01:00)
[2019-10-22] MEDS ORDERED: 0.9 % SODIUM CHLORIDE 1,000 ML IV SCH ×3 (01:30→20:58)
[2019-10-22] MEDS ORDERED: LORazepam 2 MG/ML VIAL IV PRN (01:48)
[2019-10-22] MEDS ORDERED: ONDANSETRON 4 MG/2 ML VIAL IV PRN (01:48)
[2019-10-22] MEDS ORDERED: PROMETHAZINE 25 MG/ML VIAL IV PRN (01:48)
[2019-10-22] MEDS ORDERED: IPRATROPIUM/ALBUTEROL 3 ML AMPUL.NEB NEB PRN (01:48)
[2019-10-22 06:01] LABS: Hematocrit 48.5 % (41.0-55.0); Hemoglobin 16.1 g/dL (13.5-16.5); Mean Cell Volume 87.7 fL (80.0-100.0); Mean Corpuscular HGB Conc 33.3 g/dL (31.0-36.0); Mean Platelet Volume 9.3 fL (7.4-10.4); Platelet Count 166 K/mcL (140-440); RBC 5.53 M/mcL (4.50-5.90); Red Cell Distribution Width 13.6 % (11.5-14.5); WBC 6.6 K/mcL (4.5-11.0)
[2019-10-22] MEDS: 0.9 % SODIUM CHLORIDE 10 ML SYRINGE IV SCH ×3 (06:11→20:30)
[2019-10-22 06:22] LABS: Albumin 3.5 gm/dL (3.2-5.2); Albumin/Globulin Ratio 1.2 (1.0-2.3); Alkaline Phosphatase 191 U/L (39-117); Bilirubin,Direct 1.4 mg/dL (0.0-0.3); Bilirubin,Total 2.4 mg/dL (0.0-1.0); Blood Urea Nitrogen 13 mg/dl (6-20); Calcium 8.1 mg/dl (8.6-10.4); Carbon Dioxide 23 mmol/L (22-30); Chloride 90 mmol/L (96-108); Globulin 2.9 gm/dL (2.2-3.7); Glomerular Filtration Rate 112; Glucose 92 mg/dL (70-105); Phosphorous 2.4 mg/dL (2.7-4.5); Triglycerides 65 mg/dl (<150)
--- NOTE | 2019-10-22 06:48 | Cat Scan Report ---
History: Flank pain and hematuria TECHNIQUE: Patient was imaged without oral or intravenous contrast from the diaphragm through the symphysis pubis. Sagittal and coronal reformats were created. Radiation exposure was limited using dose reduction technology. FINDINGS: The lung bases are clear. Evaluation of abdominal organs without contrast is somewhat limited. The liver and spleen are normal in size and homogeneous. There are no gallstones or thickening of the gallbladder wall. The bile ducts are nondilated. There is no apparent mass or inflammation the pancreas. The adrenals are normal and symmetric. Within a calyx in the lower pole the right kidney there is a 1 mm calculus. The right kidney is otherwise normal and there is no hydronephrosis. Posteriorly in the middle third of the left kidney there is a 1.8 cm cyst. There is a 1 mm calculus along the posterior wall of the cyst. No other stone is seen in the left kidney and there is no hydronephrosis. Both ureters are decompressed. No stones are present within the urinary bladder. The bowel gas pattern is normal. The appendix is not clearly identified. No ascites or adenopathy are present. The aorta is normal in caliber. Bone windows demonstrate moderate arthritis in the facet joints bilaterally at L3-4. There is mild arthritis in the facets at L4-5 and L5-S1. IMPRESSION: 1.8 cm cyst in the left kidney with a small calcification along the border. 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
[2019-10-22 06:57] LABS: ALT/SGPT 3298 U/l (0-40); AST/SGOT 5230 U/l (0-37)
[2019-10-22 07:10] LABS: Lactate Dehydrogenase 3510 U/L (94-250)
[2019-10-22 07:11] LABS: HIV1/2 AG/AB 4TH Generation NON-REACTIVE
[2019-10-22] MEDS ORDERED: DEXTROSE 5% IN WATER 500 ML IV SCH ×2 (07:30→07:56)
[2019-10-22 07:37] LABS: Band Neutrophils % 34 % (0-10); Eosinophils % (Manual) 2 % (0-7); Lymphocytes % 8 % (15-49); Monocytes % (Manual) 12 % (1-12); Nucleated Red Blood Cells 1 % (0-0); Platelet Estimate NORMAL (NORMAL); RBC Morphology NORMAL (NORMAL); Segmented Neutrophils % 44 % (38-78)
--- NOTE | 2019-10-22 08:14 | Internal Med Progress Note ---
Medical - PN: Subj Patient information: Note initiated : 10/22/19 at 8:10 am Service Date, if different from initiated Date: [] Patient: Rosendo Rivera 39 y/o M admitted on 10/22/19 for abdominal pain. Chief Complaint: [] Interval history: Mr. Rivera is a 39 year old M Into the ED complaining of lower abdominal pain that started yesterday. [facility] and left there because he felt like he was being taken care of. Arrived in the ED at [facility] on the complaining of abdominal pain lower quadrants. He complained of fever and some diarrhea. No blood in his stools. He complained of some coughing as well and shortness of breath. Chest x-ray and CT abdomen pelvis were done which showed normal chest and in the abdomen pelvis only mild fatty liver as well as diverticulosis but no diverticulitis. Patient received IV fluids narcotics and felt better. Rectal examination was unremarkable. Found to have low sodium and mildly elevated liver enzymes and had a normal alcohol level. Hepatitis panel was negative. After treatment the ER felt better and was discharged. Today he presents back with same pain and reports some difficulty with urine. Per ER notes patient was not forthcoming with much history. Complains of headache and generalized body aches and malaise. I further questioning admits to generalized abdominal pain sharp and crampy. He says he had continued diarrhea but no reported diarrhea in the ER here. He reports cough with some green sputum but no shortness of breath. He says this is all started on the . His INR was this and reason Tylenol level was okay. Patient denies recent Tylenol use. Admits to methamphetamines but states he smokes and does not use IV drugs. 10/22 Patient was able to get some sleep last night. He does state he feels a little better abdominal pain is little better. His abdominal pain he describes as a gassy pain. Urine output appropriate. Liver enzymes elevated today not surprising but expect and hope to downtrend soon. Has headache this morning and feels chilled. Review of Systems: denies fever/nausea/vomiting/chest pain/cough/dyspnea/diarrhea. Otherwise see above. - Constitutional Vitals: Vital Signs Temp Pulse Resp BP Pulse Ox 101.6 F H 102 H 18 131/86 100 10/22/19 06:00 10/22/19 06:12 10/22/19 06:12 10/22/19 06:00 10/22/19 06:12 Period Temp Pulse Resp BP Sys/Benz Pulse Ox Last 24 Hr 98.0 F-102.4 F 83-108 8-24 105-139/59-94 84-100 Intake and Output 10/21/19 10/22/19 10/22/19 21:59 05:59 13:59 Intake Total 1340 Output Total 475 Balance 865 Weight 77.111 kg 77.111 kg Intake & Output: Intake & Output 10/21/19 10/22/19 10/22/19 21:59 05:59 13:59 Intake Total 1340 Output Total 475 Balance 865 Weight 77.111 kg 77.111 kg Intake: IV 1000 Lactated Ringers 1,000 ml @ 1000 Wide Open IV BOLUS ONE Rx#: [id number] Oral 340 Output: Void Amount 475 Other: Meal Dinner Percent of Meal Consumed 100% Urine Appearance Clear Urine Color Bright Yellow Stool Size Moderate Moderate Stool Color Brown Brown Stool Consistency Liquid Liquid Loose Watery Exam: General: Awake, mild Distress from discomfort improved Eyes/N/T: EOMI, Head/Neck: neck supple, CV: Mildly tacky but regular, No murmurs, Pulm: Clear b/l, no wheezing/rhonchi/rales Abd: soft, TTP throughout improved mildly, +BS x4 Ext: no clubbing/cyanosis/edema Neuro: awake, oriented, no focal deficits, moves all extremities, Skin: warm/dry Medical - PN: Obj Da - Labs CBC & Chem 7: 10/22/19 04:30 10/22/19 04:30 Labs: Abnormal Lab Results 10/22/19 10/22/19 10/22/19 04:30 04:30 00:51 RBC Hgb Gran % Lymph % (Auto) Lymph # (Auto) Band Neutrophils % 34 H Lymphocytes % 8 L Metamyelocytes % Nucleated RBCs 1 H PT INR Sodium 128 L Chloride 90 L Osmolality Calcium 8.1 L Phosphorus 2.4 L Total Bilirubin 2.4 H Direct Bilirubin 1.4 H GGT 107 H AST 5230 H ALT 3298 H Alkaline Phosphatase 191 H Lactate Dehydrogenase 3510 H 2353 H Total Creatine Kinase Prealbumin Urine Protein Urine Ketones Urine Occult Blood Urine Urobilinogen Amorphous Crystals Hyaline Casts Ur Amphetamines Screen U Marijuana (THC) Screen 10/22/19 10/21/19 10/21/19 00:45 22:45 20:19 RBC Hgb Gran % Lymph % (Auto) Lymph # (Auto) Band Neutrophils % Lymphocytes % Metamyelocytes % Nucleated RBCs PT INR Sodium Chloride Osmolality 261 L Calcium Phosphorus Total Bilirubin Direct Bilirubin GGT AST ALT Alkaline Phosphatase Lactate Dehydrogenase Total Creatine Kinase 578 H Prealbumin Urine Protein Urine Ketones Urine Occult Blood Urine Urobilinogen Amorphous Crystals Hyaline Casts Ur Amphetamines Screen Suspect positive A U Marijuana (THC) Screen Suspect positive A 10/21/19 10/21/19 10/21/19 20:19 19:47 19:47 RBC Hgb Gran % Lymph % (Auto) Lymph # (Auto) Band Neutrophils % 33 H Lymphocytes % 13 L Metamyelocytes % 2 H Nucleated RBCs PT 15.8 H INR 1.3 H Sodium Chloride Osmolality Calcium Phosphorus Total Bilirubin Direct Bilirubin GGT AST ALT Alkaline Phosphatase Lactate Dehydrogenase Total Creatine Kinase Prealbumin Urine Protein 100 A Urine Ketones 5/tr A Urine Occult Blood 0.2 A Urine Urobilinogen 2.0 A Amorphous Crystals Few A Hyaline Casts 5 H Ur Amphetamines Screen U Marijuana (THC) Screen 10/21/19 10/21/19 10/21/19 19:47 19:47 19:47 RBC 5.94 H Hgb 17.5 H Gran % 84.7 H Lymph % (Auto) 7.8 L Lymph # (Auto) 0.6 L Band Neutrophils % Lymphocytes % Metamyelocytes % Nucleated RBCs PT INR Sodium 120 L Chloride 82 L Osmolality Calcium 8.1 L Phosphorus Total Bilirubin 1.6 H Direct Bilirubin GGT AST 3822 H ALT 2550 H Alkaline Phosphatase 190 H Lactate Dehydrogenase Total Creatine Kinase Prealbumin 14.6 L Urine Protein Urine Ketones Urine Occult Blood Urine Urobilinogen Amorphous Crystals Hyaline Casts Ur Amphetamines Screen U Marijuana (THC) Screen Meds: Medications Albuterol/Ipratropium (Duoneb) 3 ml NEB Q4HRT PRN PRN Reason: Bronchospasm Enoxaparin Sodium (Lovenox) 40 mg SQ DAILY [facility] Famotidine (Pepcid) 20 mg IV HS [facility] Piperacillin Sod/Tazobactam (Sod 3.375 gm/ Dextrose) 50 mls @ 100 mls/hr IV Q6H [facility]; Protocol Vancomycin HCl 1,250 mg/ (Sodium Chloride) 500 mls @ 333.3 mls/hr IV Q12H [facility] Dextrose (Dextrose 5% In Water) 500 mls @ 250 mls/hr IV .Q2H [facility] Stop: 10/22/19 09:55 Lorazepam (Ativan) 0.5 mg IV Q4-6HP PRN PRN Reason: ANXIETY/SEDATION Morphine Sulfate (Morphine) 1 - 4 mg IV Q3HP PRN PRN Reason: PAIN LEVEL > 6 Ondansetron HCl (Zofran) 4 mg IV Q4-6HP PRN PRN Reason: Nausea And Vomiting Promethazine HCl (Phenergan) 12.5 mg IV Q4-6HP PRN PRN Reason: Nausea And Vomiting Sodium Chloride (Saline Flush) 10 ml IV Q8 [facility] Last Admin: 10/22/19 06:11 Dose: Not Given Documented by: Vancomycin HCl (Vancomycin Per Pharmacy) 1 order IV UD [facility] Medical - PN: A/P - Time Spent With Patient Total time spent is greater than 50% in coordination of care (as documented) at patient's floor/unit and/or counseling patient: - Narrative A/P Narrative: A: *Severe elevation in liver enzymes including mildly elevated bili/ALP, without Acute Liver Failure at this point,: ?etiology unknown, possible drug (including meth) vs viral vs -INR <1.5, ammonia wnl, APAP/ASA wnl, BAL neg -HIV neg, hepatitis panel neg, -UDS with Meth/MJ -lethargic but oriented x4 and answering questions appropriately -CT a/p with mild fatty liver and diverticulosis, liver size normal, no biliary dilation, no ascites, no other acute process -Case d/w with Dr. Romeo ([facility]) from ED who had no other recommendations other than checking hepatitis/tylenol and felt no need for transfer -increased enzymes today -does feel a litter better today *Gen weakness/malaise: *Generalized Abd pain / Diarrhea: is feeling a litter better today -no fecal wbc *Hyponatremia, hypotonic: improving -TSH/cortisol wnl *Substance abuse including methamphetamines *Sepsis: unknown source but given drug use, endocarditis high in differential -PCT elevated, febrile/bandemia, tachy, lactate ok *Anxiety: *COPD: P: -IVF's, serial sodium -follow INR/hepatic panel, viral studies -consider further imaging including hepatic vein doppler, -Vanc/Zosyn, BC pending -stool studies -avoid Tylenol/NSAIDS -ppx: lovenox
[2019-10-22] MEDS ORDERED: VANCOMYCIN PER PHARMACY IV SCH (08:15)
[2019-10-22] MEDS ORDERED: SIMETHICONE 80 MG TAB.CHEW CHEWED PRN (08:47)
[2019-10-22] MEDS: PIPERACILLIN SODIUM/TAZOBACTAM 3.375 GM in DEXTROSE 5% IN WATER 50 ML IV SCH ×3 (09:10→18:40)
[2019-10-22 11:22] LABS: INR 1.5 (0.9-1.1); Prothrombin Time 18.3 sec (11.9-14.5)
[2019-10-22 11:29] LABS: Blood Urea Nitrogen 12 mg/dl (6-20); Calcium 7.6 mg/dl (8.6-10.4); Carbon Dioxide 22 mmol/L (22-30); Glomerular Filtration Rate 106; Glucose 88 mg/dL (70-105)
[2019-10-22 11:30] LABS: Chloride 89 mmol/L (96-108)
[2019-10-22] MEDS: VANCOMYCIN 1,250 MG in 0.9 % SODIUM CHLORIDE 500 ML IV SCH ×2 (12:00→20:30)
[2019-10-22] MEDS: ENOXAPARIN 40 MG/0.4 ML SYRINGE SQ SCH (12:45)
[2019-10-22] MEDS: 0.9 % SODIUM CHLORIDE 1,000 ML IV SCH (12:45)
--- NOTE | 2019-10-22 14:34 | Ultrasound Report ---
History: Abdominal pain, evaluate portal vein FINDINGS: The liver is normal in size and homogeneous. Doppler shows normal direction of blood flow in the hepatic and portal veins. There is no evidence of venous thrombosis or abnormal dilatation of the vessels. The gallbladder is normal with no stones or thickening of the wall. Common bile duct is 2.5 mm in diameter. No abnormal mass or fluid collection are seen in the right upper quadrant. There has been no significant change from the recent abdomen CT done on 10/19/19. IMPRESSION: Normal exam Interpreted and Authenticated by: Victor Hugo Dick 10/22/19
[2019-10-22 17:11] LABS: POC Blood Urea Nitrogen 10 mg/dl (6-20); POC CO2 24 mmol/L (22-30); POC Calcium, Ionized 0.96 mmol/L (1.16-1.32); POC Chloride 90 mmol/L (96-108); POC Creatinine 0.9 mg/dl (0.7-1.2); POC Glucose, Random 109 mg/dL (70-105); POC Potassium 3.5 mmol/L (3.3-5.1); POC Sodium 126 mmol/L (133-145)
[2019-10-22] MEDS: FAMOTIDINE/PF 20 MG/2 ML VIAL IV SCH (20:30)
[2019-10-23] MEDS: PIPERACILLIN SODIUM/TAZOBACTAM 3.375 GM in DEXTROSE 5% IN WATER 50 ML IV SCH ×5 (00:06→23:50)
[2019-10-23] MEDS: 0.9 % SODIUM CHLORIDE 1,000 ML IV SCH (02:03)
[2019-10-23 05:28] LABS: Hematocrit 42.3 % (41.0-55.0); Mean Cell Volume 88.4 fL (80.0-100.0); Mean Corpuscular HGB Conc 33.2 g/dL (31.0-36.0); Mean Platelet Volume 9.3 fL (7.4-10.4); Platelet Count 141 K/mcL (140-440); RBC 4.78 M/mcL (4.50-5.90); Red Cell Distribution Width 13.6 % (11.5-14.5); WBC 4.7 K/mcL (4.5-11.0)
[2019-10-23] MEDS: 0.9 % SODIUM CHLORIDE 10 ML SYRINGE IV SCH ×4 (05:36→20:44)
[2019-10-23 05:40] LABS: INR 1.4 (0.9-1.1); Prothrombin Time 17.3 sec (11.9-14.5)
[2019-10-23 05:46] LABS: Albumin 3.1 gm/dL (3.2-5.2); Albumin/Globulin Ratio 1.3 (1.0-2.3); Alkaline Phosphatase 144 U/L (39-117); Bilirubin,Direct 2.1 mg/dL (0.0-0.3); Bilirubin,Total 3.1 mg/dL (0.0-1.0); Blood Urea Nitrogen 8 mg/dl (6-20); Calcium 7.7 mg/dl (8.6-10.4); Carbon Dioxide 22 mmol/L (22-30); Chloride 96 mmol/L (96-108); Globulin 2.3 gm/dL (2.2-3.7); Glomerular Filtration Rate 112; Glucose 99 mg/dL (70-105); Phosphorous 1.4 mg/dL (2.7-4.5); Triglycerides 88 mg/dl (<150); Uric Acid 2.1 mg/dL (2.5-8.0)
[2019-10-23 06:00] LABS: ALT/SGPT 3113 U/l (0-40); AST/SGOT 3396 U/l (0-37); Lactate Dehydrogenase 2197 U/L (94-250)
[2019-10-23 06:22] LABS: Band Neutrophils % 26 % (0-10); Eosinophils % (Manual) 3 % (0-7); Lymphocytes % 22 % (15-49); Monocytes % (Manual) 17 % (1-12); Platelet Estimate NORMAL (NORMAL); RBC Morphology NORMAL (NORMAL); Reactive Lymphocytes 1 % (0-2); Segmented Neutrophils % 31 % (38-78)
[2019-10-23] MEDS ORDERED: SODIUM PHOSPHATE 30 MMOL in DEXTROSE 5% IN WATER 500 ML IV ONE (07:44)
[2019-10-23] MEDS ORDERED: CALCIUM GLUCONATE 4.65 MEQ/10 ML VIAL IV ONE (07:46)
--- NOTE | 2019-10-23 07:51 | Internal Med Progress Note ---
Medical - PN: Subj Patient information: Note initiated : 10/23/19 at 7:41 am Service Date, if different from initiated Date: [] Patient: Rosendo Rivear 39 y/o M admitted on 10/22/19 for abdominal pain. Chief Complaint: [] Interval history: Mr. Rivera is a 39 year old M Into the ED complaining of lower abdominal pain that started yesterday. Patient was first seen at [facility] on the for sinus symptoms. He then went to [facility] on the and left there because he felt like he was being taken care of. Arrived in the ED at [facility] on the complaining of abdominal pain lower quadrants. He complained of fever and some diarrhea. No blood in his stools. He complained of some coughing as well and shortness of breath. Chest x-ray and CT abdomen pelvis were done which showed normal chest and in the abdomen pelvis only mild fatty liver as well as diverticulosis but no diverticulitis. Patient received IV fluids narcotics and felt better. Rectal examination was unremarkable. Found to have low sodium and mildly elevated liver enzymes and had a normal alcohol level. Hepatitis panel was negative. After treatment the ER felt better and was discharged. Today he presents back with same pain and reports some difficulty with urine. Per ER notes patient was not forthcoming with much history. Complains of headache and generalized body aches and malaise. I further questioning admits to generalized abdominal pain sharp and crampy. He says he had continued diarrhea but no reported diarrhea in the ER here. He reports cough with some green sputum but no shortness of breath. He says this is all started on the . His INR was this and reason Tylenol level was okay. Patient denies recent Tylenol use. Admits to methamphetamines but states he smokes and does not use IV drugs. 10/22 Patient was able to get some sleep last night. He does state he feels a little better abdominal pain is little better. His abdominal pain he describes as a gassy pain. Urine output appropriate. Liver enzymes elevated today not surprising but expect and hope to downtrend soon. Has headache this morning and feels chilled. 10/23 Feeling much better today. Laughing and joking and talking with friend. Abdominal pain much improved. Liver enzymes start him turnaround. He feels like his fever broke. Patient initially was adamant that he did not use IV drugs and only smoked meth. Finally today he admits that he recently started using injections and has used up to 15 times over the past month. he has a cough productive of green sputum, denies fever/dyspnea Review of Systems: denies fever/nausea/vomiting/chest pain/dyspnea. Otherwise see above. - Constitutional Vitals: Vital Signs Temp Pulse Resp BP Pulse Ox 97.8 F 74 20 107/75 99 10/23/19 06:00 10/23/19 06:30 10/23/19 04:00 10/23/19 07:01 10/23/19 06:30 Period Temp Pulse Resp BP Sys/Benz Pulse Ox Last 24 Hr 97.2 F-104.0 F 73-125 14-28 106-141/63-98 94-100 Intake and Output 10/22/19 10/23/19 10/23/19 21:59 05:59 13:59 Intake Total 4191 2141 50 Output Total 2900 2650 400 Balance 1291 -509 -350 Weight 73.709 kg Intake & Output: Intake & Output 10/22/19 10/23/19 10/23/19 21:59 05:59 13:59 Intake Total 4191 2141 50 Output Total 2900 2650 400 Balance 1291 -509 -350 Weight 73.709 kg Intake: IV 1050 1550 50 Sodium Chloride 0.9% 1,000 ml @ 1000 125 mls/hr IV .Q8H [facility] Rx#: [id number] Dextrose 5% in Water 500 ml @ 500 200 mls/hr IV .Q2H30M [facility] Rx#: [id number] Zosyn 3.375 gm In Dextrose 5% 50 50 50 in Water 50 ml @ 100 mls/hr IV Q6H [facility] Rx#:[id number] Vancomycin 1,250 mg In Sodium 500 500 Chloride 0.9% 500 ml @ 333.3 mls/hr IV Q12H [facility] Rx#: [id number] Oral 3141 591 Output: Void Amount 2900 2650 400 Other: Meal Dinner Percent of Meal Consumed 75% Urine Appearance Clear Clear Urine Color Bright Yellow Light Ryann Urine Odor Normal Normal Stool Color Green [place] Stool Consistency Watery Loose # Bowel Movements 1 Exam: General: Awake,NAD Eyes/N/T: EOMI, Head/Neck: neck supple, CV: RRR, No murmurs, Pulm: Clear b/l, no wheezing/rhonchi/rales Abd: soft, mild periumbilical TTP, +BS x4 Ext: no clubbing/cyanosis/edema Neuro: awake, oriented, no focal deficits, moves all extremities, Skin: warm/dry Medical - PN: Obj Da - Labs CBC & Chem 7: 10/23/19 04:30 10/23/19 04:30 Labs: Abnormal Lab Results 10/23/19 10/23/19 10/23/19 04:30 04:30 04:30 RBC Hgb Gran % Lymph % (Auto) Lymph # (Auto) Seg Neutrophils % Band Neutrophils % Lymphocytes % Monocytes % (Manual) Metamyelocytes % Nucleated RBCs PT 17.3 H INR 1.4 H POC Sodium Sodium 130 L POC Chloride Chloride POC Glucose Osmolality Uric Acid 2.1 L Calcium 7.7 L POC WB Ioniz Calcium Phosphorus 1.4 L Total Bilirubin 3.1 H Direct Bilirubin 2.1 H GGT 79 H AST 3396 H ALT 3113 H Alkaline Phosphatase 144 H Lactate Dehydrogenase 2197 H Total Creatine Kinase 592 H Total Protein 5.4 L Albumin 3.1 L Prealbumin Urine Protein Urine Ketones Urine Occult Blood Urine Urobilinogen Amorphous Crystals Hyaline Casts Ur Amphetamines Screen U Marijuana (THC) Screen 10/23/19 10/22/19 10/22/19 04:30 19:35 16:55 RBC Hgb Gran % Lymph % (Auto) Lymph # (Auto) Seg Neutrophils % 31 L Band Neutrophils % 26 H Lymphocytes % Monocytes % (Manual) 17 H Metamyelocytes % Nucleated RBCs PT INR POC Sodium 126 L Sodium 126 L POC Chloride 90 L Chloride POC Glucose 109 H Osmolality Uric Acid Calcium POC WB Ioniz Calcium 0.96 L Phosphorus Total Bilirubin Direct Bilirubin GGT AST ALT Alkaline Phosphatase Lactate Dehydrogenase Total Creatine Kinase Total Protein Albumin Prealbumin Urine Protein Urine Ketones Urine Occult Blood Urine Urobilinogen Amorphous Crystals Hyaline Casts Ur Amphetamines Screen U Marijuana (THC) Screen 10/22/19 10/22/19 10/22/19 16:55 10:41 10:41 RBC Hgb Gran % Lymph % (Auto) Lymph # (Auto) Seg Neutrophils % Band Neutrophils % Lymphocytes % Monocytes % (Manual) Metamyelocytes % Nucleated RBCs PT 18.3 H INR 1.5 H POC Sodium Sodium 124 L 124 L POC Chloride Chloride 89 L POC Glucose Osmolality Uric Acid Calcium 7.6 L POC WB Ioniz Calcium Phosphorus Total Bilirubin Direct Bilirubin GGT AST ALT Alkaline Phosphatase Lactate Dehydrogenase Total Creatine Kinase Total Protein Albumin Prealbumin Urine Protein Urine Ketones Urine Occult Blood Urine Urobilinogen Amorphous Crystals Hyaline Casts Ur Amphetamines Screen U Marijuana (THC) Screen 10/22/19 10/22/19 10/22/19 04:30 04:30 00:51 RBC Hgb Gran % Lymph % (Auto) Lymph # (Auto) Seg Neutrophils % Band Neutrophils % 34 H Lymphocytes % 8 L Monocytes % (Manual) Metamyelocytes % Nucleated RBCs 1 H PT INR POC Sodium Sodium 128 L POC Chloride Chloride 90 L POC Glucose Osmolality Uric Acid Calcium 8.1 L POC WB Ioniz Calcium Phosphorus 2.4 L Total Bilirubin 2.4 H Direct Bilirubin 1.4 H GGT 107 H AST 5230 H ALT 3298 H Alkaline Phosphatase 191 H Lactate Dehydrogenase 3510 H 2353 H Total Creatine Kinase Total Protein Albumin Prealbumin Urine Protein Urine Ketones Urine Occult Blood Urine Urobilinogen Amorphous Crystals Hyaline Casts Ur Amphetamines Screen U Marijuana (THC) Screen 10/22/19 10/21/19 10/21/19 00:45 22:45 20:19 RBC Hgb Gran % Lymph % (Auto) Lymph # (Auto) Seg Neutrophils % Band Neutrophils % Lymphocytes % Monocytes % (Manual) Metamyelocytes % Nucleated RBCs PT INR POC Sodium Sodium POC Chloride Chloride POC Glucose Osmolality 261 L Uric Acid Calcium POC WB Ioniz Calcium Phosphorus Total Bilirubin Direct Bilirubin GGT AST ALT Alkaline Phosphatase Lactate Dehydrogenase Total Creatine Kinase 578 H Total Protein Albumin Prealbumin Urine Protein Urine Ketones Urine Occult Blood Urine Urobilinogen Amorphous Crystals Hyaline Casts Ur Amphetamines Screen Suspect positive A U Marijuana (THC) Screen Suspect positive A 10/21/19 10/21/19 10/21/19 20:19 19:47 19:47 RBC Hgb Gran % Lymph % (Auto) Lymph # (Auto) Seg Neutrophils % Band Neutrophils % 33 H Lymphocytes % 13 L Monocytes % (Manual) Metamyelocytes % 2 H Nucleated RBCs PT 15.8 H INR 1.3 H POC Sodium Sodium POC Chloride Chloride POC Glucose Osmolality Uric Acid Calcium POC WB Ioniz Calcium Phosphorus Total Bilirubin Direct Bilirubin GGT AST ALT Alkaline Phosphatase Lactate Dehydrogenase Total Creatine Kinase Total Protein Albumin Prealbumin Urine Protein 100 A Urine Ketones 5/tr A Urine Occult Blood 0.2 A Urine Urobilinogen 2.0 A Amorphous Crystals Few A Hyaline Casts 5 H Ur Amphetamines Screen U Marijuana (THC) Screen 10/21/19 10/21/19 10/21/19 19:47 19:47 19:47 RBC 5.94 H Hgb 17.5 H Gran % 84.7 H Lymph % (Auto) 7.8 L Lymph # (Auto) 0.6 L Seg Neutrophils % Band Neutrophils % Lymphocytes % Monocytes % (Manual) Metamyelocytes % Nucleated RBCs PT INR POC Sodium Sodium 120 L POC Chloride Chloride 82 L POC Glucose Osmolality Uric Acid Calcium 8.1 L POC WB Ioniz Calcium Phosphorus Total Bilirubin 1.6 H Direct Bilirubin GGT AST 3822 H ALT 2550 H Alkaline Phosphatase 190 H Lactate Dehydrogenase Total Creatine Kinase Total Protein Albumin Prealbumin 14.6 L Urine Protein Urine Ketones Urine Occult Blood Urine Urobilinogen Amorphous Crystals Hyaline Casts Ur Amphetamines Screen U Marijuana (THC) Screen Meds: Medications Albuterol/Ipratropium (Duoneb) 3 ml NEB Q4HRT PRN PRN Reason: Bronchospasm Enoxaparin Sodium (Lovenox) 40 mg SQ DAILY [facility] Last Admin: 10/22/19 12:45 Dose: 40 mg Documented by: Famotidine (Pepcid) 20 mg IV HS [facility] Last Admin: 10/22/19 20:30 Dose: 20 mg Documented by: Piperacillin Sod/Tazobactam (Sod 3.375 gm/ Dextrose) 50 mls @ 100 mls/hr IV Q6H [facility]; Protocol Last Infusion: 10/23/19 06:39 Dose: Infused Documented by: Vancomycin HCl 1,250 mg/ (Sodium Chloride) 500 mls @ 333.3 mls/hr IV Q12H [facility] Last Infusion: 10/23/19 00:00 Dose: Infused Documented by: Sodium Chloride (Sodium Chloride 0.9%) 1,000 mls @ 75 mls/hr IV .[id number] [facility] Stop: 10/23/19 10:17 Last Admin: 10/23/19 01:16 Dose: 75 mls/hr Documented by: Lorazepam (Ativan) 0.5 mg IV Q4-6HP PRN PRN Reason: ANXIETY/SEDATION Morphine Sulfate (Morphine) 1 - 4 mg IV Q3HP PRN PRN Reason: PAIN LEVEL > 6 Ondansetron HCl (Zofran) 4 mg IV Q4-6HP PRN PRN Reason: Nausea And Vomiting Promethazine HCl (Phenergan) 12.5 mg IV Q4-6HP PRN PRN Reason: Nausea And Vomiting Simethicone (Mylicon) 80 mg CHEWED QIDP PRN PRN Reason: Dyspepsia Last Admin: 10/22/19 14:27 Dose: 80 mg Documented by: Sodium Chloride (Saline Flush) 10 ml IV Q8 [facility] Last Admin: 10/23/19 05:36 Dose: 10 ml Documented by: Vancomycin HCl (Vancomycin Per Pharmacy) 1 order IV UD [facility] Medical - PN: A/P - Time Spent With Patient Total time spent is greater than 50% in coordination of care (as documented) at patient's floor/unit and/or counseling patient: - Narrative A/P Narrative: A: *Severe elevation in liver enzymes including mildly elevated bili/ALP, without Acute Liver Failure at this point,: likely recently started IV Meth use vs viral vs -INR 1.4<1.5<1.3, ammonia wnl, APAP/ASA wnl, BAL neg -HIV/Hepatitis neg, -UDS with Meth/MJ -CT a/p with mild fatty liver and diverticulosis, liver size normal, no biliary dilation, no ascites, no other acute process -Case d/w with Dr. Romeo ([facility]) from ED who had no other recommendations other than checking hepatitis/tylenol and felt no need for transfer -Enzymes mildly today after worsening yesterdayi *Gen weakness/malaise: much improved *Generalized Abd pain / Diarrhea: Better -no fecal wbc *Hyponatremia, hypotonic: improving, responding to NS -TSH/cortisol wnl *Hypophos: *Substance abuse including methamphetamines IV route: *Sepsis: unknown source but given drug use, endocarditis on differential although BC's negative vs Cholangitis vs -PCT elevated, febrile/bandemia, tachy, lactate ok -not tachy anymore, fever curve improving, bandemia mildly improved *Anxiety: *COPD: P: -IVF's decrease -follow INR/hepatic panel, viral studies -MRCP, chest imagin -Vanc(likely d/c today)/Zosyn, BC pending -stool studies -avoid Tylenol/NSAIDS -replete electrolytes prn -substance abuse counseling cessation -ppx: lovenox
[2019-10-23] MEDS: ENOXAPARIN 40 MG/0.4 ML SYRINGE SQ SCH (08:19)
[2019-10-23] MEDS: PHOSPHORUS 250 MG TABLET PO SCH ×3 (08:19→20:44)
[2019-10-23] MEDS: VANCOMYCIN 1,500 MG in 0.9 % SODIUM CHLORIDE 500 ML IV SCH ×2 (09:42→20:42)
[2019-10-23] MEDS: VANCOMYCIN 1,250 MG in 0.9 % SODIUM CHLORIDE 500 ML IV SCH (09:49)
[2019-10-23] MEDS ORDERED: IOPAMIDOL 100 ML BOTTLE IV ONE (10:40)
--- NOTE | 2019-10-23 10:54 | Cat Scan Report ---
History: Productive cough TECHNIQUE: The chest was imaged following injection of intravenous nonionic contrast. Sagittal, coronal and axial images were created. The radiation exposure was limited using dose reduction technology. FINDINGS: There is minor dependent atelectasis posteriorly in both lung bases. The lungs are otherwise clear and normally expanded. There is no evidence of pneumonia, mass, pulmonary fibrosis or pulmonary abscess. No abnormally enlarged lymph nodes are present and there is no pleural effusion. The heart mediastinum and richie are normal. Aorta is normal in caliber and there is no atherosclerotic disease. There is an old healed fracture with callus anteriorly in the left fifth rib. Moderate fatty infiltration is present in the liver. IMPRESSION: Normal chest Fatty infiltration of the liver Interpreted and Authenticated by: Victor Hugo Dick 10/23/19
[2019-10-23 11:23] LABS: C-Reactive Protein 3.4 mg/dl (0.0-0.8)
--- NOTE | 2019-10-23 16:26 | Magnetic Resonance Report ---
History: Increased serum bilirubin level and transaminase levels TECHNIQUE: Multiplanar imaging was performed. 3-D reconstructions were created of the biliary tracts. FINDINGS: There is inflammation of the portal triads throughout the liver. Intra and extrahepatic bile ducts are nondilated. The common hepatic and common bile duct ranges from 2 to 3 mm in size. There is no evidence of liver abscess or mass. The overall size liver is normal. The gallbladder is normal with no stones or thickening of the wall. The spleen is normal in size and homogeneous. There Is no evidence of a mass or inflammation in the pancreas. The adrenals are normal. A 2 cm simple cyst is present posteriorly in the midportion of the left kidney. The kidneys are otherwise normal. The aorta is normal in caliber. IMPRESSION: Inflammation/edema in the portal triads throughout the liver. This is usually associated with cholangitis. There is no evidence of biliary tract obstruction Interpreted and Authenticated by: Victor Hugo Dick 10/23/19
[2019-10-23] MEDS: FAMOTIDINE/PF 20 MG/2 ML VIAL IV SCH (20:44)
[2019-10-24] MEDS: PIPERACILLIN SODIUM/TAZOBACTAM 3.375 GM in DEXTROSE 5% IN WATER 50 ML IV SCH ×3 (05:32→17:34)
[2019-10-24] MEDS: 0.9 % SODIUM CHLORIDE 10 ML SYRINGE IV SCH ×3 (05:33→21:27)
[2019-10-24 05:46] LABS: INR 1.3 (0.9-1.1); Prothrombin Time 16.4 sec (11.9-14.5)
[2019-10-24 06:07] LABS: C-Reactive Protein 2.5 mg/dl (0.0-0.8); Creatine Kinase 223 IU/L (24-195)
[2019-10-24 06:08] LABS: Albumin 2.7 gm/dL (3.2-5.2); Albumin/Globulin Ratio 1.1 (1.0-2.3); Alkaline Phosphatase 128 U/L (39-117); Bilirubin,Total 3.8 mg/dL (0.0-1.0); Blood Urea Nitrogen 6 mg/dl (6-20); Calcium 7.9 mg/dl (8.6-10.4); Carbon Dioxide 22 mmol/L (22-30); Chloride 98 mmol/L (96-108); Globulin 2.4 gm/dL (2.2-3.7); Glucose 94 mg/dL (70-105); Triglycerides 118 mg/dl (<150); Uric Acid 1.9 mg/dL (2.5-8.0)
[2019-10-24 06:10] LABS: Bilirubin,Direct 3.1 mg/dL (0.0-0.3); Glomerular Filtration Rate 126; Hematocrit 38.9 % (41.0-55.0); Hemoglobin 12.9 g/dL (13.5-16.5); Mean Cell Volume 88.2 fL (80.0-100.0); Mean Corpuscular HGB Conc 33.2 g/dL (31.0-36.0); Mean Platelet Volume 9.5 fL (7.4-10.4); Phosphorous 2.4 mg/dL (2.7-4.5); Platelet Count 159 K/mcL (140-440); RBC 4.41 M/mcL (4.50-5.90); Red Cell Distribution Width 13.6 % (11.5-14.5); WBC 6.5 K/mcL (4.5-11.0)
[2019-10-24 06:27] LABS: ALT/SGPT 2775 U/l (0-40); AST/SGOT 1874 U/l (0-37); Lactate Dehydrogenase 963 U/L (94-250)
[2019-10-24 07:22] LABS: Band Neutrophils % 6 % (0-10); Eosinophils % (Manual) 5 % (0-7); Lymphocytes % 43 % (15-49); Monocytes % (Manual) 7 % (1-12); Platelet Estimate NORMAL (NORMAL); RBC Morphology NORMAL (NORMAL); Reactive Lymphocytes 4 % (0-2); Segmented Neutrophils % 35 % (38-78)
--- NOTE | 2019-10-24 07:33 | Internal Med Progress Note ---
Medical - PN: Subj Patient information: Note initiated : 10/24/19 at 7:29 am Service Date, if different from initiated Date: [] Patient: Rosendo Rivera 39 y/o M admitted on 10/22/19 for abdominal pain. Chief Complaint: [] Interval history: Mr. Rivera is a 39 year old M Into the ED complaining of lower abdominal pain that started yesterday. Patient was first seen at [facility] on the for sinus symptoms. He then went to [facility] on the and left there because he felt like he was being taken care of. Arrived in the ED at [facility] on the complaining of abdominal pain lower quadrants. He complained of fever and some diarrhea. No blood in his stools. He complained of some coughing as well and shortness of breath. Chest x-ray and CT abdomen pelvis were done which showed normal chest and in the abdomen pelvis only mild fatty liver as well as diverticulosis but no diverticulitis. Patient received IV fluids narcotics and felt better. Rectal examination was unremarkable. Found to have low sodium and mildly elevated liver enzymes and had a normal alcohol level. Hepatitis panel was negative. After treatment the ER felt better and was discharged. Today he presents back with same pain and reports some difficulty with urine. Per ER notes patient was not forthcoming with much history. Complains of headache and generalized body aches and malaise. I further questioning admits to generalized abdominal pain sharp and crampy. He says he had continued diarrhea but no reported diarrhea in the ER here. He reports cough with some green sputum but no shortness of breath. He says this is all started on the . His INR was this and reason Tylenol level was okay. Patient denies recent Tylenol use. Admits to methamphetamines but states he smokes and does not use IV drugs. 10/22 Patient was able to get some sleep last night. He does state he feels a little better abdominal pain is little better. His abdominal pain he describes as a gassy pain. Urine output appropriate. Liver enzymes elevated today not surprising but expect and hope to downtrend soon. Has headache this morning and feels chilled. 10/23 Feeling much better today. Laughing and joking and talking with friend. Abdominal pain much improved. Liver enzymes start him turnaround. He feels like his fever broke. Patient initially was adamant that he did not use IV drugs and only smoked meth. Finally today he admits that he recently started using injections and has used up to 15 times over the past month. he has a cough productive of green sputum, denies fever/dyspnea MRCP with evidence of cholangitis. No evidence of biliary tract obstruction. Patient responding to empiric antibiotics. we will continue current treatment. continue monitoring INR as long as remained stable or decreases will continue to watch here, if liver function appears to be worsening and developing liver failure patient will need to be transferred. 10/24 Continues to feel better each day. Slept well. No new complaints. Diarrhea resolved. Abdominal pain better. Review of Systems: denies fever/nausea/vomiting/chest pain/dyspnea. Otherwise see above. - Constitutional Vitals: Vital Signs Temp Pulse Resp BP Pulse Ox 97.2 F 70 20 115/76 99 10/24/19 03:01 10/24/19 06:02 10/24/19 06:02 10/24/19 06:01 10/24/19 06:02 Period Temp Pulse Resp BP Sys/Benz Pulse Ox Last 24 Hr 97.1 F-100.2 F 65-90 10-25 98-124/68-87 91-100 Intake and Output 10/23/19 10/24/19 10/24/19 21:59 05:59 13:59 Intake Total 7351 888 1410 Output Total 1525 1200 Balance 166 -650 1050 Weight 72.303 kg Intake & Output: Intake & Output 10/23/19 10/24/19 10/24/19 21:59 05:59 13:59 Intake Total 0135 525 1504 Output Total 1525 1200 Balance 166 -650 1050 Weight 72.303 kg Intake: IV 249 255 6730 Sodium Chloride 0.9% 1,000 ml @ 1000 75 mls/hr IV .[id number] [facility] Rx#: [id number] Zosyn 3.375 gm In Dextrose 5% 50 50 50 in Water 50 ml @ 100 mls/hr IV Q6H [facility] Rx#:[id number] Sodium Phosphate 30 Mmol In 510 Dextrose 5% in Water 500 ml @ 85 mls/hr IV ONCE ONE Rx#: [id number] Vancomycin 1,500 mg In Sodium 500 Chloride 0.9% 500 ml @ 333.3 mls/hr IV Q12H [facility] Rx#: [id number] Oral 1131 Output: Void Amount 1525 1200 Other: Meal Dinner Percent of Meal Consumed 50% Feeding Ability Independent Urine Appearance Clear Clear Urine Color Bright Yellow Dark Yellow Urine Odor Normal Normal Exam: General: Awake,NAD Eyes/N/T: EOMI, Head/Neck: neck supple, CV: RRR, No murmurs, Pulm: Clear b/l, no wheezing/rhonchi/rales Abd: soft, mild TTP, +BS x4 Ext: no clubbing/cyanosis/edema Neuro: awake, oriented, no focal deficits, moves all extremities, Skin: warm/dry Medical - PN: Obj Da - Labs CBC & Chem 7: 10/24/19 04:20 10/24/19 04:20 Labs: Abnormal Lab Results 10/24/19 10/24/19 10/24/19 04:20 04:20 04:20 RBC Hgb Hct Gran % Lymph % (Auto) Lymph # (Auto) Seg Neutrophils % Band Neutrophils % Lymphocytes % Monocytes % (Manual) Metamyelocytes % Nucleated RBCs Reactive Lymphocytes PT 16.4 H INR 1.3 H POC Sodium Sodium 131 L POC Chloride Chloride Creatinine 0.6 L POC Glucose Osmolality Uric Acid 1.9 L Calcium 7.9 L POC WB Ioniz Calcium Phosphorus 2.4 L Total Bilirubin 3.8 H Direct Bilirubin 3.1 H GGT 69 H AST 1874 H ALT 2775 H Alkaline Phosphatase 128 H Lactate Dehydrogenase 963 H Total Creatine Kinase 223 H C-Reactive Protein 2.5 H Total Protein 5.1 L Albumin 2.7 L Prealbumin Urine Protein Urine Ketones Urine Occult Blood Urine Urobilinogen Amorphous Crystals Hyaline Casts Ur Amphetamines Screen U Marijuana (THC) Screen 10/24/19 10/23/19 10/23/19 04:20 10:14 04:30 RBC 4.41 L Hgb 12.9 L Hct 38.9 L Gran % Lymph % (Auto) Lymph # (Auto) Seg Neutrophils % 35 L Band Neutrophils % Lymphocytes % Monocytes % (Manual) Metamyelocytes % Nucleated RBCs Reactive Lymphocytes 4 H PT INR POC Sodium Sodium POC Chloride Chloride Creatinine POC Glucose Osmolality Uric Acid Calcium POC WB Ioniz Calcium Phosphorus Total Bilirubin Direct Bilirubin GGT AST ALT Alkaline Phosphatase Lactate Dehydrogenase Total Creatine Kinase 592 H C-Reactive Protein 3.4 H Total Protein Albumin Prealbumin Urine Protein Urine Ketones Urine Occult Blood Urine Urobilinogen Amorphous Crystals Hyaline Casts Ur Amphetamines Screen U Marijuana (THC) Screen 10/23/19 10/23/19 10/23/19 04:30 04:30 04:30 RBC Hgb Hct Gran % Lymph % (Auto) Lymph # (Auto) Seg Neutrophils % 31 L Band Neutrophils % 26 H Lymphocytes % Monocytes % (Manual) 17 H Metamyelocytes % Nucleated RBCs Reactive Lymphocytes PT 17.3 H INR 1.4 H POC Sodium Sodium 130 L POC Chloride Chloride Creatinine POC Glucose Osmolality Uric Acid 2.1 L Calcium 7.7 L POC WB Ioniz Calcium Phosphorus 1.4 L Total Bilirubin 3.1 H Direct Bilirubin 2.1 H GGT 79 H AST 3396 H ALT 3113 H Alkaline Phosphatase 144 H Lactate Dehydrogenase 2197 H Total Creatine Kinase C-Reactive Protein Total Protein 5.4 L Albumin 3.1 L Prealbumin Urine Protein Urine Ketones Urine Occult Blood Urine Urobilinogen Amorphous Crystals Hyaline Casts Ur Amphetamines Screen U Marijuana (THC) Screen 10/22/19 10/22/19 10/22/19 19:35 16:55 16:55 RBC Hgb Hct Gran % Lymph % (Auto) Lymph # (Auto) Seg Neutrophils % Band Neutrophils % Lymphocytes % Monocytes % (Manual) Metamyelocytes % Nucleated RBCs Reactive Lymphocytes PT INR POC Sodium 126 L Sodium 126 L 124 L POC Chloride 90 L Chloride Creatinine POC Glucose 109 H Osmolality Uric Acid Calcium POC WB Ioniz Calcium 0.96 L Phosphorus Total Bilirubin Direct Bilirubin GGT AST ALT Alkaline Phosphatase Lactate Dehydrogenase Total Creatine Kinase C-Reactive Protein Total Protein Albumin Prealbumin Urine Protein Urine Ketones Urine Occult Blood Urine Urobilinogen Amorphous Crystals Hyaline Casts Ur Amphetamines Screen U Marijuana (THC) Screen 10/22/19 10/22/19 10/22/19 10:41 10:41 04:30 RBC Hgb Hct Gran % Lymph % (Auto) Lymph # (Auto) Seg Neutrophils % Band Neutrophils % Lymphocytes % Monocytes % (Manual) Metamyelocytes % Nucleated RBCs Reactive Lymphocytes PT 18.3 H INR 1.5 H POC Sodium Sodium 124 L 128 L POC Chloride Chloride 89 L 90 L Creatinine POC Glucose Osmolality Uric Acid Calcium 7.6 L 8.1 L POC WB Ioniz Calcium Phosphorus 2.4 L Total Bilirubin 2.4 H Direct Bilirubin 1.4 H GGT 107 H AST 5230 H ALT 3298 H Alkaline Phosphatase 191 H Lactate Dehydrogenase 3510 H Total Creatine Kinase C-Reactive Protein Total Protein Albumin Prealbumin Urine Protein Urine Ketones Urine Occult Blood Urine Urobilinogen Amorphous Crystals Hyaline Casts Ur Amphetamines Screen U Marijuana (THC) Screen 10/22/19 10/22/19 10/22/19 04:30 00:51 00:45 RBC Hgb Hct Gran % Lymph % (Auto) Lymph # (Auto) Seg Neutrophils % Band Neutrophils % 34 H Lymphocytes % 8 L Monocytes % (Manual) Metamyelocytes % Nucleated RBCs 1 H Reactive Lymphocytes PT INR POC Sodium Sodium POC Chloride Chloride Creatinine POC Glucose Osmolality Uric Acid Calcium POC WB Ioniz Calcium Phosphorus Total Bilirubin Direct Bilirubin GGT AST ALT Alkaline Phosphatase Lactate Dehydrogenase 2353 H Total Creatine Kinase 578 H C-Reactive Protein Total Protein Albumin Prealbumin Urine Protein Urine Ketones Urine Occult Blood Urine Urobilinogen Amorphous Crystals Hyaline Casts Ur Amphetamines Screen U Marijuana (THC) Screen 10/21/19 10/21/19 10/21/19 22:45 20:19 20:19 RBC Hgb Hct Gran % Lymph % (Auto) Lymph # (Auto) Seg Neutrophils % Band Neutrophils % Lymphocytes % Monocytes % (Manual) Metamyelocytes % Nucleated RBCs Reactive Lymphocytes PT INR POC Sodium Sodium POC Chloride Chloride Creatinine POC Glucose Osmolality 261 L Uric Acid Calcium POC WB Ioniz Calcium Phosphorus Total Bilirubin Direct Bilirubin GGT AST ALT Alkaline Phosphatase Lactate Dehydrogenase Total Creatine Kinase C-Reactive Protein Total Protein Albumin Prealbumin Urine Protein 100 A Urine Ketones 5/tr A Urine Occult Blood 0.2 A Urine Urobilinogen 2.0 A Amorphous Crystals Few A Hyaline Casts 5 H Ur Amphetamines Screen Suspect positive A U Marijuana (THC) Screen Suspect positive A 10/21/19 10/21/19 10/21/19 19:47 19:47 19:47 RBC Hgb Hct Gran % Lymph % (Auto) Lymph # (Auto) Seg Neutrophils % Band Neutrophils % 33 H Lymphocytes % 13 L Monocytes % (Manual) Metamyelocytes % 2 H Nucleated RBCs Reactive Lymphocytes PT 15.8 H INR 1.3 H POC Sodium Sodium POC Chloride Chloride Creatinine POC Glucose Osmolality Uric Acid Calcium POC WB Ioniz Calcium Phosphorus Total Bilirubin Direct Bilirubin GGT AST ALT Alkaline Phosphatase Lactate Dehydrogenase Total Creatine Kinase C-Reactive Protein Total Protein Albumin Prealbumin 14.6 L Urine Protein Urine Ketones Urine Occult Blood Urine Urobilinogen Amorphous Crystals Hyaline Casts Ur Amphetamines Screen U Marijuana (THC) Screen 10/21/19 10/21/19 19:47 19:47 RBC 5.94 H Hgb 17.5 H Hct Gran % 84.7 H Lymph % (Auto) 7.8 L Lymph # (Auto) 0.6 L Seg Neutrophils % Band Neutrophils % Lymphocytes % Monocytes % (Manual) Metamyelocytes % Nucleated RBCs Reactive Lymphocytes PT INR POC Sodium Sodium 120 L POC Chloride Chloride 82 L Creatinine POC Glucose Osmolality Uric Acid Calcium 8.1 L POC WB Ioniz Calcium Phosphorus Total Bilirubin 1.6 H Direct Bilirubin GGT AST 3822 H ALT 2550 H Alkaline Phosphatase 190 H Lactate Dehydrogenase Total Creatine Kinase C-Reactive Protein Total Protein Albumin Prealbumin Urine Protein Urine Ketones Urine Occult Blood Urine Urobilinogen Amorphous Crystals Hyaline Casts Ur Amphetamines Screen U Marijuana (THC) Screen Meds: Medications Albuterol/Ipratropium (Duoneb) 3 ml NEB Q4HRT PRN PRN Reason: Bronchospasm Enoxaparin Sodium (Lovenox) 40 mg SQ DAILY [facility] Last Admin: 10/23/19 08:19 Dose: 40 mg Documented by: Famotidine (Pepcid) 20 mg IV HS [facility] Last Admin: 10/23/19 20:44 Dose: 20 mg Documented by: Piperacillin Sod/Tazobactam (Sod 3.375 gm/ Dextrose) 50 mls @ 100 mls/hr IV Q6H [facility]; Protocol Last Infusion: 10/24/19 06:33 Dose: Infused Documented by: Vancomycin HCl 1,500 mg/ (Sodium Chloride) 500 mls @ 333.3 mls/hr IV Q12H [facility] Last Infusion: 10/23/19 23:52 Dose: Infused Documented by: Lorazepam (Ativan) 0.5 mg IV Q4-6HP PRN PRN Reason: ANXIETY/SEDATION Morphine Sulfate (Morphine) 1 - 4 mg IV Q3HP PRN PRN Reason: PAIN LEVEL > 6 Ondansetron HCl (Zofran) 4 mg IV Q4-6HP PRN PRN Reason: Nausea And Vomiting Last Admin: 10/23/19 17:07 Dose: 4 mg Documented by: Promethazine HCl (Phenergan) 12.5 mg IV Q4-6HP PRN PRN Reason: Nausea And Vomiting Simethicone (Mylicon) 80 mg CHEWED QIDP PRN PRN Reason: Dyspepsia Last Admin: 10/22/19 14:27 Dose: 80 mg Documented by: Sodium Chloride (Saline Flush) 10 ml IV Q8 [facility] Last Admin: 10/24/19 05:33 Dose: 10 ml Documented by: Vancomycin HCl (Vancomycin Per Pharmacy) 1 order IV UD [facility] Medical - PN: A/P - Time Spent With Patient Total time spent is greater than 50% in coordination of care (as documented) at patient's floor/unit and/or counseling patient: - Narrative A/P Narrative: A: *Hepatitis, without Acute Liver Failure at this point: likely 2/2 recently started IV Meth use vs viral vs -INR 1.3<1.4<1.5<1.3, ammonia wnl, APAP/ASA wnl, BAL neg -HIV/Hepatitis neg, -UDS with Meth/MJ -CT a/p with mild fatty liver and diverticulosis, liver size normal, no biliary dilation, no ascites, no other acute process -Enzymes mildly today after worsening yesterdayi *Cholangitis: MRCP with evidence of cholangitis. No evidence of biliary tract obstruction. Patient responding to empiric antibiotics. we will continue current treatment. continue monitoring INR & as long as remained stable or decreases will continue to watch here, if liver function appears to be worsening and developing liver failure patient will need to be transferred. *Sepsis: 2/2 above, Improved *Gen weakness/malaise: much improved *Generalized Abd pain / Diarrhea: Better -no fecal wbc, *Hyponatremia, hypotonic: improving, responded to NS -TSH/cortisol wnl *Hypophos: *Substance abuse including methamphetamines IV route: *Anxiety: *COPD: *Diarrhea on admit: c.diff negative and resolved P: -follow INR/hepatic panel, viral studies -ASHLEY Addison pending -avoid Tylenol/NSAIDS -replete electrolytes prn -substance abuse counseling cessation -ppx: lovenox
[2019-10-24] MEDS: ENOXAPARIN 40 MG/0.4 ML SYRINGE SQ SCH (08:27)
[2019-10-24] MEDS ORDERED: SODIUM CHLORIDE 1 GM TABLET PO SCH (09:00)
[2019-10-24] MEDS ORDERED: IPRATROPIUM/ALBUTEROL 3 ML AMPUL.NEB NEB PRN (10:04)
[2019-10-24] MEDS ORDERED: PROMETHAZINE 25 MG/ML VIAL IV PRN (10:04)
[2019-10-24] MEDS ORDERED: LORazepam 2 MG/ML VIAL IV PRN (10:04)
[2019-10-24] MEDS ORDERED: SIMETHICONE 80 MG TAB.CHEW CHEWED PRN (10:04)
[2019-10-24] MEDS ORDERED: ONDANSETRON 4 MG/2 ML VIAL IV PRN (10:04)
[2019-10-24 14:14] LABS: Anti-Nuclear Antibody Pattern SPECKLED
[2019-10-24] MEDS: SODIUM CHLORIDE 1 GM TABLET PO SCH ×2 (15:31→21:26)
[2019-10-24] MEDS: FAMOTIDINE/PF 20 MG/2 ML VIAL IV SCH (21:26)
[2019-10-25] MEDS: PIPERACILLIN SODIUM/TAZOBACTAM 3.375 GM in DEXTROSE 5% IN WATER 50 ML IV SCH ×5 (05:29→23:46)
[2019-10-25] MEDS: 0.9 % SODIUM CHLORIDE 10 ML SYRINGE IV SCH ×3 (05:38→21:20)
--- NOTE | 2019-10-25 06:30 | Internal Med Progress Note ---
Medical - PN: Subj Patient information: Note initiated : 10/25/19 at 6:28 am Service Date, if different from initiated Date: [] Patient: Rosendo Rivera 39 y/o M admitted on 10/22/19 for abdominal pain. Chief Complaint: [] Interval history: Mr. Rivera is a 39 year old M Into the ED complaining of lower abdominal pain that started yesterday. Patient was first seen at [facility] on the for sinus symptoms. He then went to [facility] on the and left there because he felt like he was being taken care of. Arrived in the ED at [facility] on the complaining of abdominal pain lower quadrants. He complained of fever and some diarrhea. No blood in his stools. He complained of some coughing as well and shortness of breath. Chest x-ray and CT abdomen pelvis were done which showed normal chest and in the abdomen pelvis only mild fatty liver as well as diverticulosis but no diverticulitis. Patient received IV fluids narcotics and felt better. Rectal examination was unremarkable. Found to have low sodium and mildly elevated liver enzymes and had a normal alcohol level. Hepatitis panel was negative. After treatment the ER felt better and was discharged. Today he presents back with same pain and reports some difficulty with urine. Per ER notes patient was not forthcoming with much history. Complains of headache and generalized body aches and malaise. I further questioning admits to generalized abdominal pain sharp and crampy. He says he had continued diarrhea but no reported diarrhea in the ER here. He reports cough with some green sputum but no shortness of breath. He says this is all started on the . His INR was this and reason Tylenol level was okay. Patient denies recent Tylenol use. Admits to methamphetamines but states he smokes and does not use IV drugs. 10/22 Patient was able to get some sleep last night. He does state he feels a little better abdominal pain is little better. His abdominal pain he describes as a gassy pain. Urine output appropriate. Liver enzymes elevated today not surprising but expect and hope to downtrend soon. Has headache this morning and feels chilled. 10/23 Feeling much better today. Laughing and joking and talking with friend. Abdominal pain much improved. Liver enzymes start him turnaround. He feels like his fever broke. Patient initially was adamant that he did not use IV drugs and only smoked meth. Finally today he admits that he recently started using injections and has used up to 15 times over the past month. he has a cough productive of green sputum, denies fever/dyspnea MRCP with evidence of cholangitis. No evidence of biliary tract obstruction. Patient responding to empiric antibiotics. we will continue current treatment. continue monitoring INR as long as remained stable or decreases will continue to watch here, if liver function appears to be worsening and developing liver failure patient will need to be transferred. 10/24 Continues to feel better each day. Slept well. No new complaints. Diarrhea resolved. Abdominal pain better. 10/25 Doing well. Slept well. No new complaints. No abdominal pain. Bilirubin increased today. liver enzymes improving and pending today labs. Review of Systems: denies headache /fever/nausea/vomiting/chest pain/dyspnea/cough. Otherwise see above. - Constitutional Vitals: Vital Signs Temp Pulse Resp BP Pulse Ox 98.0 F 65 16 114/73 97 10/25/19 03:55 10/25/19 03:55 10/25/19 03:55 10/25/19 03:55 10/25/19 03:55 Period Temp Pulse Resp BP Sys/Benz Pulse Ox Last 24 Hr 97.4 F-98.4 F 64-79 14-20 94-124/59-76 97-100 Intake and Output 10/24/19 10/25/19 10/25/19 21:59 05:59 13:59 Intake Total 530 450 Output Total 950 475 Balance -420 -25 Weight 72.303 kg Intake & Output: Intake & Output 10/24/19 10/25/19 10/25/19 21:59 05:59 13:59 Intake Total 530 450 Output Total 950 475 Balance -420 -25 Weight 72.303 kg Intake: IV 50 Zosyn 3.375 gm In Dextrose 5% 50 in Water 50 ml @ 100 mls/hr IV Q6H [facility] Rx#:[id number] Oral 480 450 Output: Void Amount 950 475 Other: Meal Dinner Percent of Meal Consumed 100% Feeding Ability Independent Urine Appearance Clear Clear Urine Color Dark Ryann Dark Ryann Urine Odor Strong Exam: General: Awake,NAD Eyes/N/T: EOMI, Head/Neck: neck supple, CV: RRR, No murmurs, Pulm: Clear b/l, no wheezing/rhonchi/rales Abd: soft, nontender, +BS x4 Ext: no clubbing/cyanosis/edema Neuro: awake, oriented, no focal deficits, moves all extremities, Skin: warm/dry Medical - PN: Obj Da - Labs CBC & Chem 7: 10/24/19 04:20 10/25/19 04:45 Labs: Abnormal Lab Results 10/24/19 10/24/19 10/24/19 04:20 04:20 04:20 RBC Hgb Hct Seg Neutrophils % Band Neutrophils % Lymphocytes % Monocytes % (Manual) Nucleated RBCs Reactive Lymphocytes PT 16.4 H INR 1.3 H POC Sodium Sodium 131 L POC Chloride Chloride Creatinine 0.6 L POC Glucose Uric Acid 1.9 L Calcium 7.9 L POC WB Ioniz Calcium Phosphorus 2.4 L Total Bilirubin 3.8 H Direct Bilirubin 3.1 H GGT 69 H AST 1874 H ALT 2775 H Alkaline Phosphatase 128 H Lactate Dehydrogenase 963 H Total Creatine Kinase 223 H C-Reactive Protein 2.5 H Total Protein 5.1 L Albumin 2.7 L BAYLEE Screen 10/24/19 10/23/19 10/23/19 04:20 10:14 04:30 RBC 4.41 L Hgb 12.9 L Hct 38.9 L Seg Neutrophils % 35 L Band Neutrophils % Lymphocytes % Monocytes % (Manual) Nucleated RBCs Reactive Lymphocytes 4 H PT INR POC Sodium Sodium POC Chloride Chloride Creatinine POC Glucose Uric Acid Calcium POC WB Ioniz Calcium Phosphorus Total Bilirubin Direct Bilirubin GGT AST ALT Alkaline Phosphatase Lactate Dehydrogenase Total Creatine Kinase 592 H C-Reactive Protein 3.4 H Total Protein Albumin BAYLEE Screen 10/23/19 10/23/19 10/23/19 04:30 04:30 04:30 RBC Hgb Hct Seg Neutrophils % 31 L Band Neutrophils % 26 H Lymphocytes % Monocytes % (Manual) 17 H Nucleated RBCs Reactive Lymphocytes PT 17.3 H INR 1.4 H POC Sodium Sodium 130 L POC Chloride Chloride Creatinine POC Glucose Uric Acid 2.1 L Calcium 7.7 L POC WB Ioniz Calcium Phosphorus 1.4 L Total Bilirubin 3.1 H Direct Bilirubin 2.1 H GGT 79 H AST 3396 H ALT 3113 H Alkaline Phosphatase 144 H Lactate Dehydrogenase 2197 H Total Creatine Kinase C-Reactive Protein Total Protein 5.4 L Albumin 3.1 L BAYLEE Screen 10/22/19 10/22/19 10/22/19 22:50 19:35 16:55 RBC Hgb Hct Seg Neutrophils % Band Neutrophils % Lymphocytes % Monocytes % (Manual) Nucleated RBCs Reactive Lymphocytes PT INR POC Sodium 126 L Sodium 126 L POC Chloride 90 L Chloride Creatinine POC Glucose 109 H Uric Acid Calcium POC WB Ioniz Calcium 0.96 L Phosphorus Total Bilirubin Direct Bilirubin GGT AST ALT Alkaline Phosphatase Lactate Dehydrogenase Total Creatine Kinase C-Reactive Protein Total Protein Albumin BAYLEE Screen Pos 1:80 or greater A 10/22/19 10/22/19 10/22/19 16:55 10:41 10:41 RBC Hgb Hct Seg Neutrophils % Band Neutrophils % Lymphocytes % Monocytes % (Manual) Nucleated RBCs Reactive Lymphocytes PT 18.3 H INR 1.5 H POC Sodium Sodium 124 L 124 L POC Chloride Chloride 89 L Creatinine POC Glucose Uric Acid Calcium 7.6 L POC WB Ioniz Calcium Phosphorus Total Bilirubin Direct Bilirubin GGT AST ALT Alkaline Phosphatase Lactate Dehydrogenase Total Creatine Kinase C-Reactive Protein Total Protein Albumin BAYLEE Screen 10/22/19 10/22/19 04:30 04:30 RBC Hgb Hct Seg Neutrophils % Band Neutrophils % 34 H Lymphocytes % 8 L Monocytes % (Manual) Nucleated RBCs 1 H Reactive Lymphocytes PT INR POC Sodium Sodium POC Chloride Chloride Creatinine POC Glucose Uric Acid Calcium POC WB Ioniz Calcium Phosphorus Total Bilirubin Direct Bilirubin GGT AST 5230 H ALT 3298 H Alkaline Phosphatase Lactate Dehydrogenase 3510 H Total Creatine Kinase C-Reactive Protein Total Protein Albumin BAYLEE Screen Meds: Medications Albuterol/Ipratropium (Duoneb) 3 ml NEB Q4HRT PRN PRN Reason: Bronchospasm Enoxaparin Sodium (Lovenox) 40 mg SQ DAILY [facility] Famotidine (Pepcid) 20 mg IV HS [facility] Last Admin: 10/24/19 21:26 Dose: 20 mg Documented by: Piperacillin Sod/Tazobactam (Sod 3.375 gm/ Dextrose) 50 mls @ 100 mls/hr IV Q6H [facility]; Protocol Last Admin: 10/25/19 05:36 Dose: 100 mls/hr Documented by: Lorazepam (Ativan) 0.5 mg IV Q4-6HP PRN PRN Reason: ANXIETY/SEDATION Morphine Sulfate (Morphine) 1 - 4 mg IV Q3HP PRN PRN Reason: PAIN LEVEL > 6 Ondansetron HCl (Zofran) 4 mg IV Q4-6HP PRN PRN Reason: Nausea And Vomiting Promethazine HCl (Phenergan) 12.5 mg IV Q4-6HP PRN PRN Reason: Nausea And Vomiting Simethicone (Mylicon) 80 mg CHEWED QIDP PRN PRN Reason: Dyspepsia Sodium Chloride (Saline Flush) 10 ml IV Q8 [facility] Last Admin: 10/25/19 05:38 Dose: 10 ml Documented by: Medical - PN: A/P - Time Spent With Patient Total time spent is greater than 50% in coordination of care (as documented) at patient's floor/unit and/or counseling patient: - Narrative A/P Narrative: A: *Hepatitis, without Acute Liver Failure at this point: likely 2/2 recently started IV Meth use vs viral vs -INR 1.3<1.4<1.5<1.3, ammonia wnl, APAP/ASA wnl, BAL neg -HIV/Hepatitis neg, -UDS with Meth/MJ -CT a/p with mild fatty liver and diverticulosis, liver size normal, no biliary dilation, no ascites, no other acute process -Enzymes improving -Bilirubin increasing *Cholangitis: MRCP with evidence of cholangitis. No evidence of biliary tract obstruction. Patient responding to empiric antibiotics. we will continue current treatment. continue monitoring INR & as long as remained stable or decreases will continue to watch here, if liver function appears to be worsening and developing liver failure patient will need to be transferred. *Sepsis: 2/2 above, Improved *Gen weakness/malaise: much improved *Generalized Abd pain / Diarrhea: resolved -no fecal wbc, c.diff negative *Hyponatremia, hypotonic: resolved, responded to NS -TSH/cortisol wnl *Hypophos: improved *Substance abuse including methamphetamines IV route: *Anxiety: *COPD: P: -follow INR/hepatic panel, viral studies -monitor bilirubin trend -Zosyn, BC pending -avoid Tylenol/NSAIDS -replete electrolytes prn -substance abuse counseling cessation -ppx: lovenox
[2019-10-25 06:33] LABS: INR 1.2 (0.9-1.1); Prothrombin Time 14.7 sec (11.9-14.5)
[2019-10-25 06:40] LABS: Bilirubin,Total 4.3 mg/dL (0.0-1.0); Blood Urea Nitrogen 7 mg/dl (6-20); Calcium 8.2 mg/dl (8.6-10.4); Carbon Dioxide 23 mmol/L (22-30); Chloride 100 mmol/L (96-108)
[2019-10-25 06:58] LABS: Albumin 2.9 gm/dL (3.2-5.2); Albumin/Globulin Ratio 1.1 (1.0-2.3); Alkaline Phosphatase 140 U/L (39-117); Bilirubin,Direct 3.4 mg/dL (0.0-0.3); Globulin 2.6 gm/dL (2.2-3.7); Glomerular Filtration Rate 118; Glucose 90 mg/dL (70-105); Phosphorous 2.5 mg/dL (2.7-4.5); Triglycerides 164 mg/dl (<150)
[2019-10-25 06:59] LABS: Lactate Dehydrogenase 605 U/L (94-250); Uric Acid 2.7 mg/dL (2.5-8.0)
[2019-10-25 08:21] LABS: ALT/SGPT 2440 U/l (0-40); AST/SGOT 1108 U/l (0-37)
[2019-10-25] MEDS: ENOXAPARIN 40 MG/0.4 ML SYRINGE SQ SCH (11:42)
[2019-10-25] MEDS ORDERED: POLYETHYLENE GLYCOL 3350 17 GM PACKET PO PRN (18:20)
[2019-10-25] MEDS: FAMOTIDINE/PF 20 MG/2 ML VIAL IV SCH (21:20)
[2019-10-26] MEDS: PIPERACILLIN SODIUM/TAZOBACTAM 3.375 GM in DEXTROSE 5% IN WATER 50 ML IV SCH ×4 (05:19→23:58)
[2019-10-26] MEDS: 0.9 % SODIUM CHLORIDE 10 ML SYRINGE IV SCH ×3 (05:19→19:59)
[2019-10-26 06:02] LABS: Chloride 101 mmol/L (96-108)
[2019-10-26 06:07] LABS: Alkaline Phosphatase 149 U/L (39-117); Bilirubin,Direct 4.2 mg/dL (0.0-0.3); Bilirubin,Total 5.1 mg/dL (0.0-1.0); Blood Urea Nitrogen 7 mg/dl (6-20); Calcium 8.4 mg/dl (8.6-10.4); Carbon Dioxide 23 mmol/L (22-30); Globulin 2.9 gm/dL (2.2-3.7); Glomerular Filtration Rate 118; Glucose 98 mg/dL (70-105); Lactate Dehydrogenase 507 U/L (94-250); Phosphorous 2.9 mg/dL (2.7-4.5); Triglycerides 208 mg/dl (<150); Uric Acid 2.3 mg/dL (2.5-8.0)
[2019-10-26 06:16] LABS: AST/SGOT 796 U/l (0-37)
[2019-10-26 06:17] LABS: ALT/SGPT 2166 U/l (0-40)
[2019-10-26] MEDS: ENOXAPARIN 40 MG/0.4 ML SYRINGE SQ SCH ×2 (09:03→13:01)
--- NOTE | 2019-10-26 15:29 | Internal Med Progress Note ---
Medical - PN: Subj Patient information: Note initiated : 10/26/19 at 3:24 pm Service Date, if different from initiated Date: [] Patient: Rosendo Rivera 39 y/o M admitted on 10/22/19 for abdominal pain. Chief Complaint: [] Interval history: 10/21 Mr. Rivera is a 39 year old M Into the ED complaining of lower abdominal pain that started yesterday. Patient was first seen at [facility] on the for sinus symptoms. He then went to [facility] on the and left there because he felt like he was being taken care of. Arrived in the ED at [facility] on the complaining of abdominal pain lower quadrants. He complained of fever and some diarrhea. No blood in his stools. He complained of some coughing as well and shortness of breath. Chest x-ray and CT abdomen pelvis were done which showed normal chest and in the abdomen pelvis only mild fatty liver as well as diverticulosis but no diverticulitis. Patient received IV fluids narcotics and felt better. Rectal examination was unremarkable. Found to have low sodium and mildly elevated liver enzymes and had a normal alcohol level. Hepatitis panel was negative. After treatment the ER felt better and was discharged. Today he presents back with same pain and reports some difficulty with urine. Per ER notes patient was not forthcoming with much history. Complains of headache and generalized body aches and malaise. I further questioning admits to generalized abdominal pain sharp and crampy. He says he had continued diarrhea but no reported diarrhea in the ER here. He reports cough with some green sputum but no shortness of breath. He says this is all started on the . His INR was this and reason Tylenol level was okay. Patient denies recent Tylenol use. Admits to methamphetamines but states he smokes and does not use IV drugs. 10/22 Patient was able to get some sleep last night. He does state he feels a little better abdominal pain is little better. His abdominal pain he describes as a gassy pain. Urine output appropriate. Liver enzymes elevated today not surprising but expect and hope to downtrend soon. Has headache this morning and feels chilled. 10/23 Feeling much better today. Laughing and joking and talking with friend. Abdominal pain much improved. Liver enzymes start him turnaround. He feels like his fever broke. Patient initially was adamant that he did not use IV drugs and only smoked meth. Finally today he admits that he recently started using injections and has used up to 15 times over the past month. he has a cough productive of green sputum, denies fever/dyspnea MRCP with evidence of cholangitis. No evidence of biliary tract obstruction. Patient responding to empiric antibiotics. we will continue current treatment. continue monitoring INR as long as remained stable or decreases will continue to watch here, if liver function appears to be worsening and developing liver fa ilure patient will need to be transferred. 10/24 Continues to feel better each day. Slept well. No new complaints. Diarrhea resolved. Abdominal pain better. 10/25 Doing well. Slept well. No new complaints. No abdominal pain. Bilirubin increased today. liver enzymes improving and pending today labs. 10/26 Continues to do well. Total bilirubin continues to increase, up to 5.1 today. Transaminases falling. Serologies reviewed, hepatitis A IgM has now returned reactive. This appears to be acute hepatitis A. Patient's appetite is good. Explained I would like to see bilirubin plateauing prior to discharge. - Constitutional Vitals: Vital Signs Temp Pulse Resp BP Pulse Ox 98.9 F 76 20 108/67 97 10/26/19 12:00 10/26/19 11:15 10/26/19 12:00 10/26/19 12:00 10/26/19 12:00 Period Temp Pulse Resp BP Sys/Benz Pulse Ox Last 24 Hr 97.1 F-98.9 F 69-77 12-20 108-137/67-85 97-99 Intake and Output 10/26/19 10/26/19 10/26/19 05:59 13:59 21:59 Intake Total 700 480 Output Total 900 460 Balance -200 20 Intake & Output: Intake & Output 10/26/19 10/26/19 10/26/19 05:59 13:59 21:59 Intake Total 700 480 Output Total 900 460 Balance -200 20 Intake: IV 100 Zosyn 3.375 gm In Dextrose 5% 100 in Water 50 ml @ 100 mls/hr IV Q6H [facility] Rx#:[id number] Oral 360 480 GI Tube Flush 240 Output: Void Amount 900 460 Other: Meal Lunch Percent of Meal Consumed 75% Feeding Ability Independent Urine Appearance Clear Clear Urine Color Tea Colored Dark Ryann Urine Odor Strong Exam: General: No acute distress Chest: Clear Cardiovascular: Regular, no edema Abdomen: Soft, very mild right upper quadrant tenderness Extremities: No cyanosis clubbing Neuro: Alert, oriented x3. Medical - PN: Obj Da - Labs CBC & Chem 7: 10/24/19 04:20 10/26/19 04:25 Labs: Abnormal Lab Results 10/26/19 10/25/19 10/25/19 04:25 04:45 04:45 RBC Hgb Hct Seg Neutrophils % Reactive Lymphocytes PT 14.7 H INR 1.2 H Sodium Creatinine Uric Acid 2.3 L Calcium 8.4 L 8.2 L Phosphorus 2.5 L Total Bilirubin 5.1 H 4.3 H Direct Bilirubin 4.2 H 3.4 H GGT 73 H 70 H AST 796 H 1108 H ALT 2166 H 2440 H Alkaline Phosphatase 149 H 140 H Lactate Dehydrogenase 507 H 605 H Total Creatine Kinase C-Reactive Protein Total Protein 5.5 L Albumin 3.0 L 2.9 L Triglycerides 208 H 164 H BAYLEE Screen 10/24/19 10/24/19 10/24/19 04:20 04:20 04:20 RBC Hgb Hct Seg Neutrophils % Reactive Lymphocytes PT 16.4 H INR 1.3 H Sodium 131 L Creatinine 0.6 L Uric Acid 1.9 L Calcium 7.9 L Phosphorus 2.4 L Total Bilirubin 3.8 H Direct Bilirubin 3.1 H GGT 69 H AST 1874 H ALT 2775 H Alkaline Phosphatase 128 H Lactate Dehydrogenase 963 H Total Creatine Kinase 223 H C-Reactive Protein 2.5 H Total Protein 5.1 L Albumin 2.7 L Triglycerides BAYLEE Screen 10/24/19 10/22/19 04:20 22:50 RBC 4.41 L Hgb 12.9 L Hct 38.9 L Seg Neutrophils % 35 L Reactive Lymphocytes 4 H PT INR Sodium Creatinine Uric Acid Calcium Phosphorus Total Bilirubin Direct Bilirubin GGT AST ALT Alkaline Phosphatase Lactate Dehydrogenase Total Creatine Kinase C-Reactive Protein Total Protein Albumin Triglycerides BAYLEE Screen Pos 1:80 or greater A Meds: Medications Albuterol/Ipratropium (Duoneb) 3 ml NEB Q4HRT PRN PRN Reason: Bronchospasm Enoxaparin Sodium (Lovenox) 40 mg SQ DAILY [facility] Last Admin: 10/26/19 13:01 Dose: 40 mg Documented by: Famotidine (Pepcid) 20 mg IV HS [facility] Last Admin: 10/25/19 21:20 Dose: 20 mg Documented by: Piperacillin Sod/Tazobactam (Sod 3.375 gm/ Dextrose) 50 mls @ 100 mls/hr IV Q6H [facility]; Protocol Last Admin: 10/26/19 11:00 Dose: 100 mls/hr Documented by: Lorazepam (Ativan) 0.5 mg IV Q4-6HP PRN PRN Reason: ANXIETY/SEDATION Morphine Sulfate (Morphine) 1 - 4 mg IV Q3HP PRN PRN Reason: PAIN LEVEL > 6 Ondansetron HCl (Zofran) 4 mg IV Q4-6HP PRN PRN Reason: Nausea And Vomiting Polyethylene Glycol (Miralax) 17 gm PO DAILYP PRN PRN Reason: Constipation Promethazine HCl (Phenergan) 12.5 mg IV Q4-6HP PRN PRN Reason: Nausea And Vomiting Simethicone (Mylicon) 80 mg CHEWED QIDP PRN PRN Reason: Dyspepsia Sodium Chloride (Saline Flush) 10 ml IV Q8 [facility] Last Admin: 10/26/19 05:19 Dose: 10 ml Documented by: Medical - PN: A/P - Time Spent With Patient Total time spent is greater than 50% in coordination of care (as documented) at patient's floor/unit and/or counseling patient: 15 - 24 minutes - Narrative A/P Narrative: *Hepatitis, without Acute Liver Failure at this point: Now with positive hepatitis A IgM, consistent with acute hepatitis A. Initial concern for possible methamphetamine related. However drug abuse is a risk factor for hep A. -HAV IgM reactive, thus presentation appears consistent with acute hepatitis A -INR 1.3<1.4<1.5<1.3, ammonia wnl, APAP/ASA wnl, BAL neg -Bilirubin not yet plateaued, peaks late in the setting of hepatitis. -Transaminases and alkaline phosphatase improving -HIV/HBV, HCV negative -UDS with Meth/MJ -CT a/p with mild fatty liver and diverticulosis, liver size normal, no biliary dilation, no ascites, no other acute process *Cholangitis: MRCP with evidence of cholangitis, however did not present with fever, upper quadrant pain and had no evidence of obstruction to explain cholangitis. Has been on empiric antibiotics. Given improvement in transaminases, normal white count and no fever, will discontinue antibiotics at this point and monitor. Continue monitoring INR & as long as remained stable or decreases will continue to watch here, if liver function appears to be worsening and developing liver failure patient will need to be transferred. *Sepsis: 2/2 above, Improved *Gen weakness/malaise: much improved, suspect secondary to acute viral hepatitis *Generalized Abd pain / Diarrhea: resolved, could be consistent with acute viral hepatitis -no fecal wbc, c.diff negative *Hyponatremia, hypotonic: resolved, responded to NS -TSH/cortisol wnl *Hypophosphatemia: improved *Substance abuse including methamphetamines IV route: *Anxiety: *COPD: P: -follow INR/remaining hepatitis panels -monitor bilirubin trend, if evidence plateauing, can discharge -Discontinue Zosyn -avoid Tylenol/NSAIDS -replete electrolytes prn -substance abuse counseling cessation -ppx: lovenox
[2019-10-26] MEDS: FAMOTIDINE/PF 20 MG/2 ML VIAL IV SCH (19:58)
[2019-10-27 05:11] LABS: Basophils # (Auto) 0 K/mcL (0.0-0.3); Basophils % (Auto) 0.5 % (0.0-2.0); Eosinophils # (Auto) 0.3 K/mcL (0.0-0.7); Eosinophils % (Auto) 4.1 % (0.0-7.0); Granulocytes % (Auto) 59.1 % (38.0-78.0); Hematocrit 40.5 % (41.0-55.0); Hemoglobin 13.4 g/dL (13.5-16.5); Lymphocytes # (Auto) 1.9 K/mcL (1.5-4.8); Lymphocytes % (Auto) 22.6 % (15.5-49.0); Mean Cell Volume 88.8 fL (80.0-100.0); Mean Corpuscular HGB Conc 33.2 g/dL (31.0-36.0); Mean Platelet Volume 9.5 fL (7.4-10.4); Monocytes # (Auto) 1.1 K/mcL (0.1-0.9); Monocytes % (Auto) 13.7 % (1.0-12.0); Platelet Count 303 K/mcL (140-440); RBC 4.56 M/mcL (4.50-5.90); Red Cell Distribution Width 14.3 % (11.5-14.5); WBC 8.3 K/mcL (4.5-11.0)
[2019-10-27 05:41] LABS: Chloride 100 mmol/L (96-108)
[2019-10-27 05:42] LABS: AST/SGOT 574 U/l (0-37); Albumin/Globulin Ratio 0.9 (1.0-2.3); Alkaline Phosphatase 173 U/L (39-117); Bilirubin,Direct 5.2 mg/dL (0.0-0.3); Bilirubin,Total 6.3 mg/dL (0.0-1.0); Blood Urea Nitrogen 7 mg/dl (6-20); Calcium 8.5 mg/dl (8.6-10.4); Carbon Dioxide 22 mmol/L (22-30); Globulin 3.2 gm/dL (2.2-3.7); Glomerular Filtration Rate 112; Glucose 97 mg/dL (70-105); Lactate Dehydrogenase 407 U/L (94-250); Phosphorous 2.7 mg/dL (2.7-4.5); Triglycerides 242 mg/dl (<150); Uric Acid 2.5 mg/dL (2.5-8.0)
[2019-10-27] MEDS: 0.9 % SODIUM CHLORIDE 10 ML SYRINGE IV SCH ×2 (05:49→15:54)
[2019-10-27] MEDS: PIPERACILLIN SODIUM/TAZOBACTAM 3.375 GM in DEXTROSE 5% IN WATER 50 ML IV SCH (05:49)
[2019-10-27 06:01] LABS: ALT/SGPT 1821 U/l (0-40)
[2019-10-27] MEDS: ENOXAPARIN 40 MG/0.4 ML SYRINGE SQ SCH (09:50)
[2019-10-27] MEDS ORDERED: HEPATITIS B VIRUS VACCINE 20 MCG/ML IM ONE (11:13)
--- NOTE | 2019-10-27 13:32 | Discharge Summary ---
Medical - DS: Prov Patient information: Note initiated : 10/27/19 at 1:30 pm Service Date, if different from initiated Date: [] Patient: Rosendo Rivera 39 y/o M admitted on 10/22/19 for abdominal pain. Date of admission: 10/22/19 01:50 Discharge date: 10/27/19 Primary care physician: Rochelle Melendez Admitting clinician: Mahendra Rojas Consults: 10/21/19 Consult to Physician [CONS] Stat Comment: Consulting Provider: Mahendra Rojas Reason For Exam: Physician to Consult Discharging clinician: Geovanna Powers Medical - DS: Meds - Discharge Medications Active and Home Medications: Home Medications Albuterol Sulfate [Ventolin] 1 puff INH Q4HP PRN 03/12/16 [History Confirmed 10/22/19 Last Taken Unknown] Medical - DS: Hosp Hospital Course: 10/21 Mr. Rivera is a 39 year old M Into the ED complaining of lower abdominal pain that started yesterday. Patient was first seen at [facility] on the for sinus symptoms. He then went to [facility] on the and left there because he felt like he was being taken care of. Arrived in the ED at [facility] on the complaining of abdominal pain lower quadrants. He complained of fever and some diarrhea. No blood in his stools. He complained of some coughing as well and shortness of breath. Chest x-ray and CT abdomen pelvis were done which showed normal chest and in the abdomen pelvis only mild fatty liver as well as diverticulosis but no diverticulitis. Patient received IV fluids narcotics and felt better. Rectal examination was unremarkable. Found to have low sodium and mildly elevated liver enzymes and had a normal alcohol level. Hepatitis panel was negative. After treatment the ER felt better and was discharged. Today he presents back with same pain and reports some difficulty with urine. Per ER notes patient was not forthcoming with much history. Complains of headache and generalized body aches and malaise. I further questioning admits to generalized abdominal pain sharp and crampy. He says he had continued diarrhea but no reported diarrhea in the ER here. He reports cough with some green sputum but no shortness of breath. He says this is all started on the . His INR was this and reason Tylenol level was okay. Patient denies recent Tylenol use. Admits to methamphetamines but states he smokes and does not use IV drugs. 10/22 Patient was able to get some sleep last night. He does state he feels a little better abdominal pain is little better. His abdominal pain he describes as a gassy pain. Urine output appropriate. Liver enzymes elevated today not surprising but expect and hope to downtrend soon. Has headache this morning and feels chilled. 10/23 Feeling much better today. Laughing and joking and talking with friend. Abdominal pain much improved. Liver enzymes start him turnaround. He feels like his fever broke. Patient initially was adamant that he did not use IV drugs and only smoked meth. Finally today he admits that he recently started using injections and has used up to 15 times over the past month. He has a cough productive of green sputum, denies fever/dyspnea MRCP with evidence of cholangitis. No evidence of biliary tract obstruction. Patient responding to empiric antibiotics. we will continue current treatment. continue monitoring INR as long as remained stable or decreases will continue to watch here, if liver function appears to be worsening and developing liver failure patient will need to be transferred. 10/24 Continues to feel better each day. Slept well. No new complaints. Diarrhea resolved. Abdominal pain better. 10/25 Doing well. Slept well. No new complaints. No abdominal pain. Bilirubin increased today. liver enzymes improving and pending today labs. 10/26 Continues to do well. Total bilirubin continues to increase, up to 5.1 today. Transaminases falling. Serologies reviewed, hepatitis A IgM has now returned reactive. This appears to be acute hepatitis A. Patient's appetite is good. Explained I would like to see bilirubin plateauing prior to discharge. 10/27 Patient continues to feel very well, appetite is good, ambulating throughout the hospital. No evidence of fever. White count has remained normal. Total bilirubin has increased to 6.3, though transaminases and other liver enzymes continue to trend downward. In light of positive hepatitis A IgM, this is consistent with acute hepatitis A, which is a self-limiting illness. Is expected that his total bilirubin will continue to rise for a few days before starting to normalize, and can be monitored as an outpatient. Case discussed with ID. He has been off antibiotics. Other viral causes of hepatitis were evaluated and returned negative including hepatitis B, hepatitis C, CMV, HSV and HIV. Anna-Melendez virus remains pending. The diagnosis of cholangitis was based on findings on MRCP, though portal inflammation noted on that exam a be secondary to his acute viral hepatitis. Otherwise he did not have acute upper quadrant tenderness fever leukocytosis or other findings of cholangitis and has no evidence of obstruction on MRCP. Patient needs to check in with his duty officer, if he remains in the [place] area (he still tells me he is facing 15 days in long-term), he will follow-up with medical facilities there for repeat current labs. If remains in the area, arrangements have been made for local follow-up to recheck liver enzymes. Patient has hepatitis B surface antigen negative, he has no history of hepatitis B immunization. First dose of hepatitis vaccine given prior to discharge. Discharge diagnosis: Acute hepatitis A - Time Spent with Patient Total time spent providing and/or coordinating discharge services: Greater than 30 minutes Medical - DS: Exam - Constitutional Vitals: Vital Signs Temp Pulse Pulse Resp BP Pulse Ox 10/27/19 08:16 97.6 F 84 16 113/78 96 10/27/19 04:00 98.5 F 73 12 112/72 98 10/26/19 23:13 99.6 F H 68 16 128/80 96 10/26/19 19:59 22 10/26/19 18:30 77 20 10/26/19 18:05 99.3 F H 77 22 119/73 95 10/26/19 16:00 98.5 F 20 123/80 98 Intake and Output 10/26/19 10/27/19 10/27/19 21:59 05:59 13:59 Intake Total 410 290 50 Output Total 275 Balance 135 290 50 Intake: IV 50 50 50 Zosyn 3.375 gm In Dextrose 5% 50 50 50 in Water 50 ml @ 100 mls/hr IV Q6H PAOLA Rx#:[id number] Oral 360 240 Output: Void Amount 275 Other: Meal Dinner Percent of Meal Consumed 25% Feeding Ability Independent Urine Appearance Clear Urine Color Dark Ryann # Voids 2 # Emeses 1 Weight 158 lb 12.8 oz Additional comments: General: Sitting up in bed, ambulating in the halls, no acute distress Eyes: No scleral icterus Chest: Clear Cardiovascular: Regular rate and rhythm, no edema Abdomen: Soft, very mild right upper tenderness, no guarding, no rebound, good bowel sounds Neuro: Alert, oriented x3, ambulatory, nonfocal Medical - DS: Data Labs on day of discharge: Labs from last 24 hours 10/27/19 10/27/19 10/22/19 04:15 04:15 22:50 WBC 8.3 RBC 4.56 Hgb 13.4 L Hct 40.5 L MCV 88.8 MCH 29.5 MCHC 33.2 RDW 14.3 Plt Count 303 MPV 9.5 Gran % 59.1 Lymph % (Auto) 22.6 [place] % (Auto) 13.7 H Eos % (Auto) 4.1 Baso % (Auto) 0.5 Gran # 4.9 Lymph # (Auto) 1.9 [place] # (Auto) 1.1 H Eos # (Auto) 0.3 Baso # (Auto) 0 Sodium 134 Potassium 4.2 Chloride 100 Carbon Dioxide 22 Anion Gap 12.0 BUN 7 Creatinine 0.8 GFR Calculation 112 Glucose 97 Uric Acid 2.5 Calcium 8.5 L Phosphorus 2.7 Magnesium 2.0 Total Bilirubin 6.3 H Direct Bilirubin 5.2 H GGT 102 H AST 574 H ALT 1821 H Alkaline Phosphatase 173 H Lactate Dehydrogenase 407 H Total Protein 6.2 Albumin 3.0 L Globulin 3.2 Albumin/Globulin Ratio 0.9 L Triglycerides 242 H CMV Specimen Source CMV DNA Quant PCR HSV I DNA PCR <100 HSV II DNA PCR <100 HSV (PCR) Source Whole blood 10/22/19 22:50 WBC RBC Hgb Hct MCV MCH MCHC RDW Plt Count MPV Gran % Lymph % (Auto) [place] % (Auto) Eos % (Auto) Baso % (Auto) Gran # Lymph # (Auto) [place] # (Auto) Eos # (Auto) Baso # (Auto) Sodium Potassium Chloride Carbon Dioxide Anion Gap BUN Creatinine GFR Calculation Glucose Uric Acid Calcium Phosphorus Magnesium Total Bilirubin Direct Bilirubin GGT AST ALT Alkaline Phosphatase Lactate Dehydrogenase Total Protein Albumin Globulin Albumin/Globulin Ratio Triglycerides CMV Specimen Source Whole blood CMV DNA Quant PCR <2.30 HSV I DNA PCR HSV II DNA PCR HSV (PCR) Source - Imaging and Cardiology CT scan - chest Additional comments: Date of Service: 10/23/19 Procedure(s): CT chest w con History: Productive cough IMPRESSION: Normal chest Fatty infiltration of the liver CT scan - abdomen Additional comments: Date of Service: 10/21/19 Procedure(s): CT KUB (kidney stone) History: Flank pain and hematuria IMPRESSION: 1.8 cm cyst in the left kidney with a small calcification along the border. 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 Intra and extrahepatic bile ducts are nondilated. The common hepatic and common bile duct ranges from 2 to 3 mm in size. There is no evidence of liver abscess or mass. The overall size liver is normal. The gallbladder is normal with no stones or thickening of the wall. The spleen is normal in size and homogeneous. There Is no evidence of a mass or inflammation in the pancreas. The adrenals are normal. A 2 cm simple cyst is present posteriorly in the midportion of the left kidney. The kidneys are otherwise normal. The aorta is normal in caliber. IMPRESSION: Inflammation/edema in the portal triads throughout the liver. This is usually associated with cholangitis. There is no evidence of biliary tract obstruction Medical - DS: A/P - Patient/Caregiver Discharge Instructions Activity: increase activity as tolerated Diet: Regular Diet Additional Instructions: Activity: increase activity as tolerated Diet: Regular Diet Please have [facility] Lab Drawn on 10/30/2019. Return to ER for fever, chills, uncontrolled pain, or any other concerns. Other Amb Orders: Comprehensive Metabolic Panel Time Frame: 10/30/19, Location: None Selected - Follow up Plan Follow up with: Rochelle Melendez MD [Primary Care Provider] - () Disposition: Home, Self-Care Care Plan Goals: This discharge packet is provided to you to help keep you informed about your care. We want to ensure you get everything you need when you go home. You will also be receiving a call from us in a few days to follow up with you and see how you are doing since your discharge. This gives us a chance to listen to any concerns you maybe experiencing since you were discharged or any additional needs you may have, as well as providing us feedback on your care experience. We strive to always provide excellent care and thank you for your feedback and for choosing [facility]. Prognosis: Good Rehab Potential: Good Overall status at discharge: patient is progressing back to baseline
[2019-10-28 06:54] LABS: EBV Early Antigen-SO < 9.00 U/mL
[2019-10-29 11:18] LABS: Cannabinoid Confirmation POSITIVE (N)
== END 2019-10-27 16:26 | disposition home or self-care (01) | DRG 441 ==
LOC: ED 19:05 → SUATTDRO 10-22 01:50 → ICU 10-22 01:50 → MEDSUR 10-24 12:58
PROVIDERS: ADMIT Internal Medicine; ATTEND Internal Medicine